=== PATIENT | male | born 1975 | race Caucasian/White ===

== ENCOUNTER 2020-04-09 03:31 | Inpatient (IN) | payer MEDICARE ==
[~2020-04-09] VITALS: Ht 180.3 cm; Wt 78.6 kg
[2020-04-09] VITALS (29 sets, daily range): BP systolic 91–153; BP diastolic 41–98; BMI 25.8
[2020-04-09] MEDS ORDERED: PAXIL10 MG (04:09)
[2020-04-09] MEDS ORDERED: GLUCOPHAGE500 MG PO (04:09)
[2020-04-09] MEDS ORDERED: LISINOPRIL5 MG (04:09)
[2020-04-09 04:14] LABS: BASOPHILS 0.1 % (0-2); EOSINOPHILS 0.1 % (0-7); HEMATOCRIT 36.1 % (42.0-54.0); HEMOGLOBIN 12.3 g/dL (13.5-17.5); IMMATURE GRANULOCYTES 0.2 % (0-5); LYMPHOCYTES 23.2 % (15-50); MCH 28.1 pg (26.0-34.0); MCHC 34.1 g/dL (31.0-37.0); MCV 82.4 fL (80.0-100.0); MEAN PLATELET VOLUME 9.8 fL (7.4-10.4); MONOCYTES 17.4 % (2-11); PLATELET COUNT 167 10x3/uL (130-400); RBC 4.38 10x6/uL (4.20-6.10); RDW 14.9 % (11.5-14.5); WBC 16.2 10x3/uL (4.8-10.8)
[2020-04-09 04:58] LABS: ALBUMIN 3.6 g/dL (3.4-5.0); ALKALINE PHOSPHATASE 76 U/L (30-120); ALT (SGPT) 33 U/L (10-68); BILIRUBIN - TOTAL 0.74 mg/dL (0.2-1.3); CARBON DIOXIDE 18.2 mmol/L (21.0-32.0); CHLORIDE - SERUM 92 mmol/L (98-107); CREATININE - SERUM 7.4 mg/dL (0.6-1.3); GLUCOSE 219 mg/dL (74-106); MAGNESIUM - SERUM 2.3 mg/dL (1.8-2.4); POTASSIUM - SERUM 3.9 mmol/L (3.5-5.1); PRO BNP 373 pg/mL (0-125); PROTEIN - SERUM 7.7 g/dL (6.4-8.2); SODIUM 133 mmol/L (136-145); eGFR NON AFRICAN AMERICAN 9 mL/min (90-120)
--- NOTE | 2020-04-09 05:00 | NUR ---
GROSSMAN EMPTIED OF 1200ML CLEAR MARCUS URINE
[2020-04-09 05:04] LABS: CALC OSMOLALITY 304 mosm/kg (275-300); CREATINE KINASE 2815 UL (21-232); TROPONIN-I < 0.017 ng/mL (0.000-0.060)
[2020-04-09 05:07] LABS: UREA NITROGEN 102 mg/dL (7-18)
[2020-04-09 05:08] LABS: CALCIUM 6.2 mg/dL (8.5-10.1); CKMB 12.9 U/L (0.0-3.6)
--- NOTE | 2020-04-09 06:00 | NUR ---
PT BEGAN FIGTING VENT SEE DRIP RECORD. RESP CALLED TO ER FOR TUBE ADJUSTMENT AND ABG. MD FELIX AT BEDSIDE.
--- NOTE | 2020-04-09 07:00 | NUR ---
PT CALM AT THIS TIME LYING IN STRECHER ON VENT, MONTIOR, SEE EMAR/DRIP FLOWSHEET. MD AT BEDSIDE.
--- NOTE | 2020-04-09 07:24 | NUR ---
BESIDE REPORT TO ALEXANDRA WAGGONER
--- NOTE | 2020-04-09 08:15 | NUR ---
REPOSITIONED UP IN BED. CONTINUES TO BECOME AGITATED AND FIGHT AGAINST THE VENT.
--- NOTE | 2020-04-09 10:10 | NUR ---
REPOSITIONED HIPAND BACK WITH BLANKET. FIGHTS AGAINST THE VENT WITH CONTACT AND MOVEMENT.
[2020-04-09 11:54] LABS: BACTERIA FEW /hpf (NEGATIVE); BILIRUBIN NEGATIVE (NEGATIVE); EPITHELIAL CELLS OCC /hpf (0-5); KETONE SMALL mg/dL (NEGATIVE); NITRITE NEGATIVE (NEGATIVE); UROBILINOGEN NORMAL (NORMAL); WHITE CELLS - URINE OCC /hpf (NEGATIVE)
[2020-04-09 12:15] LABS: UDS - AMPHET POSITIVE QUAL (NEGATIVE); UDS - BARB NEGATIVE QUAL (NEGATIVE); UDS - BENZO NEGATIVE QUAL (NEGATIVE); UDS - COCAINE NEGATIVE QUAL (NEGATIVE); UDS - OPIATE NEGATIVE QUAL (NEGATIVE); UDS - PCP NEGATIVE QUAL (NEGATIVE); UDS - THC NEGATIVE QUAL (NEGATIVE)
--- NOTE | 2020-04-09 12:30 | NUR ---
POSITIONING ATTEMPTED WITH ROLLED BLANKET FOR SUPPORT. FIGHTING AGAINST VENT NOTED FOR A FEW MINUTES.
--- NOTE | 2020-04-09 16:07 | NUR ---
ATTEMPT TO REPOSITION WITH BLANKET UNDER HHIP AND BACK. AGITATION NOTED WITH LEG AND UPPER BODY MOVEMENT. CALMING NOTED AFTER A FEW MINUTES WITHOUT STIMULATION.
--- NOTE | 2020-04-09 19:50 | NUR ---
REPORT OF ADMISSION AND ROOM NUMBER CALLED TO PT MOTHER. [facility] [phone]
[2020-04-10] VITALS (24 sets, daily range): BP systolic 115–141; BP diastolic 73–99; BMI 25.1
[2020-04-10 04:03] LABS: BASOPHILS 0.2 % (0-2); EOSINOPHILS 0.1 % (0-7); HEMATOCRIT 35.9 % (42.0-54.0); HEMOGLOBIN 11.9 g/dL (13.5-17.5); IMMATURE GRANULOCYTES 0.3 % (0-5); LYMPHOCYTES 18.1 % (15-50); MCH 27.3 pg (26.0-34.0); MCHC 33.1 g/dL (31.0-37.0); MCV 82.3 fL (80.0-100.0); MEAN PLATELET VOLUME 9.5 fL (7.4-10.4); MONOCYTES 19.8 % (2-11); NEUTROPHILS 61.5 % (40-80); PLATELET COUNT 175 10x3/uL (130-400); RBC 4.36 10x6/uL (4.20-6.10); RDW 15.3 % (11.5-14.5)
[2020-04-10 04:13] LABS: APTT 25.7 SECONDS (22.8-39.4); INR 1.06 (0.85-1.17); PROTIME 13.8 SECONDS (11.6-15.0)
[2020-04-10 04:15] LABS: WBC 10.4 10x3/uL (4.8-10.8)
[2020-04-10 04:23] LABS: ALBUMIN 2.9 g/dL (3.4-5.0); BILIRUBIN - TOTAL 0.73 mg/dL (0.2-1.3); MAGNESIUM - SERUM 2.3 mg/dL (1.8-2.4); POTASSIUM - SERUM 3.6 mmol/L (3.5-5.1); PROTEIN - SERUM 7.3 g/dL (6.4-8.2)
[2020-04-10 04:33] LABS: ANION GAP 12.7 mmol/L (8-16); CALCIUM 7.9 mg/dL (8.5-10.1); CARBON DIOXIDE 27.9 mmol/L (21.0-32.0); CREATININE - SERUM 1.2 mg/dL (0.6-1.3)
--- NOTE | 2020-04-10 07:10 | NUR ---
REPORT RECEIVED FROM OFF GOING NURSE AND PATIENT CARE ASSUMED. PATIENT LAYING IN BED ON BACK WITH VENT IN PLACE SEETTINGS AT FIO2 40% AC 14 TV 450 PEEP 5 ETT 7.5 23 AT LIP LINE. GROSSMAN DRAINING TO BAG CLEAR YELLOW URINE. IV LT AC 26.4 ML.HR AND RT HAND BICARB @100. EKATERINA SOFT WRIST RESTRAINTS IN PLACE. WILL CONTINUE WITH PLAN OF CARE. SR UP X 2 BED IN LOW POSITION.
--- NOTE | 2020-04-10 07:45 | NUR ---
PATIENT ATTEMPTING TO SIT UP IN BED AND PULLING ON RESTRAINTS. PER MAR ORDERS GAVE PATIENT VERSED 2 MG IV. AFTER 5 MINUTES, PATIENT NOT MUCH IMPROVED. GAVE DIPROVAN BOLUS OF 20. PATEINT IS LAYING QUEITLY AND CALM. BP 118/64 . WILL CONTINUE TO MONITOR. SR UP X 2 BED IN LOW POSITON.
--- NOTE | 2020-04-10 08:30 | NUR ---
DR ROSS ON UNIT. NEW ORDERS RECEIVED.
--- NOTE | 2020-04-10 08:40 | NUR ---
DR KAY ON UNIT. NEW ORDERS RECEVIED.
--- NOTE | 2020-04-10 09:00 | NUR ---
PATIENT REPOSITIONED FOR COMFORT AND ORAL CARE PROVIDED.
--- NOTE | 2020-04-10 09:30 | NUR ---
PATIENT MOTHER CALLED. SHE HAD SECURITY CODE. GAVE UPDATE AND ANSWERED QUESTIONS TO SATISFACTION.
--- NOTE | 2020-04-10 10:15 | NUR ---
DR HO CONSULT DR HERNANDES FOR UGI BLEED. CONSULT DR GTZ FOR CVL PLACEMENT.
[2020-04-10 10:18] LABS: CKMB 2.4 U/L (0.0-3.6); CREATINE KINASE 717 UL (21-232)
--- NOTE | 2020-04-10 10:30 | NUR ---
DR TURNER ON UNIT NEW ORDERS RECEIVED.
--- NOTE | 2020-04-10 11:00 | NUR ---
PATIENT REPOSITIONED FOR COMFORT AND ORAL CARE PERFORMED.
[2020-04-10 11:43] LABS: CREATINE KINASE 480 UL (21-232); CREATININE - SERUM 0.8 mg/dL (0.6-1.3)
[2020-04-10 11:44] LABS: CKMB 1.5 U/L (0.0-3.6)
[2020-04-10 11:57] LABS: BASOPHILS 0.2 % (0-2); EOSINOPHILS 0.2 % (0-7); HEMATOCRIT 35.6 % (42.0-54.0); HEMOGLOBIN 11.9 g/dL (13.5-17.5); IMMATURE GRANULOCYTES 0.2 % (0-5); LYMPHOCYTES 15.9 % (15-50); MCH 27.8 pg (26.0-34.0); MCHC 33.4 g/dL (31.0-37.0); MCV 83.2 fL (80.0-100.0); MEAN PLATELET VOLUME 9.6 fL (7.4-10.4); NEUTROPHILS 67.5 % (40-80); PLATELET COUNT 179 10x3/uL (130-400); RBC 4.28 10x6/uL (4.20-6.10); RDW 15.4 % (11.5-14.5); WBC 10.4 10x3/uL (4.8-10.8)
--- NOTE | 2020-04-10 13:00 | NUR ---
SPOKE WITH PATIENTS MOTHER REBECCA MONTALVO. RECEIVED VERBAL PERMISSION FOR DR HERNANDES TO PERFORM EGD , BLOOD IF NEEDED AND ANESTHESISA. RECEIVED VERBAL PERMISSION FOR DR GTZ TO DO CVL PLACEMENT.
--- NOTE | 2020-04-10 13:00 | NUR ---
PATIENT REPOSITONED FOR COMFORT AND ORAL CARE PROVIDED.
--- NOTE | 2020-04-10 14:00 | NUR ---
DR HERNANDES IN ROOM. EGD COMPLETED. PATIENT TOLERATED WELL. NEW ORDERS RECEIVED. PATIENT IS STABLE AND VSS. WILL CONTINUE TO MONITOR. SR UP X 2 BED IN LOW POSITON. EKATERINA WLRIST RESTRAINTS IN PLACE.
--- NOTE | 2020-04-10 15:45 | NUR ---
PATIENT REPOSITONED FOR COMFORT AND ORAL CARE PROVIDED.
--- NOTE | 2020-04-10 17:32 | NUR ---
LETTY CHAIREZ. GAMING ASSOCIATE ACCESS NURSE IN ROOM. RT UPPER ARM PICC LINE PLACED WITHOUT DIFFICULTY. ALL IV TUBING REPLACED AND INFUSED THROUGH PICC LINE. WILL CONTINUE TO MONITOR. SR UP X 2 BED IN LOW POSITION .
--- NOTE | 2020-04-10 18:00 | NUR ---
OGT PLACED WITHOUT DIFFICULTY. PLACEMENT VERIFIED THROUGH AUSCULTATION AND XRAY. PATEINT CONTINUES WITH ST IN THE 120'S. SPOKE WITH MARIAM THORNTON. STATED THAT MOST LIKELY DUE TO METH USE. NO NEW ORDERS RECEVED. INSTRUCTED TO CALL HIM BACK IF ST INCREASES OVER 140 OR ARRYTHMIA. WILL CONTINUE TO MONITOR.
--- NOTE | 2020-04-10 18:15 | NUR ---
PATIENT REPOSITONED FOR COMFORT AND ORAL CARE PROVIDED.
--- NOTE | 2020-04-10 19:15 | NUR ---
REPORT RECIEVED, SHIFT ASSESSMENT COMPLETE, PT IS SEDATED ON VENT, ON 40% FIO2 WITH 95% O2 SAT, ALL PPP, VSS, WILL CON'T TO MONITOR
[2020-04-11] VITALS (25 sets, daily range): BP systolic 127–168; BP diastolic 80–99
--- NOTE | 2020-04-11 03:06 | NUR ---
COMPLETE BATH AND LINEN CHANGE, PT TOLERATED WELL
[2020-04-11 04:33] LABS: BASOPHILS 0.3 % (0-2); EOSINOPHILS 0.3 % (0-7); HEMATOCRIT 36.2 % (42.0-54.0); HEMOGLOBIN 11.9 g/dL (13.5-17.5); IMMATURE GRANULOCYTES 0.2 % (0-5); LYMPHOCYTES 16.2 % (15-50); MCH 27.9 pg (26.0-34.0); MCHC 32.9 g/dL (31.0-37.0); MCV 84.8 fL (80.0-100.0); MEAN PLATELET VOLUME 9.9 fL (7.4-10.4); MONOCYTES 19.9 % (2-11); NEUTROPHILS 63.1 % (40-80); PLATELET COUNT 194 10x3/uL (130-400); RBC 4.27 10x6/uL (4.20-6.10); RDW 15.5 % (11.5-14.5); WBC 12.9 10x3/uL (4.8-10.8)
[2020-04-11 04:53] LABS: ALBUMIN 2.8 g/dL (3.4-5.0); ALKALINE PHOSPHATASE 61 U/L (30-120); ALT (SGPT) 25 U/L (10-68); BILIRUBIN - TOTAL 0.52 mg/dL (0.2-1.3); CALCIUM 8.2 mg/dL (8.5-10.1); CARBON DIOXIDE 32.5 mmol/L (21.0-32.0); CHLORIDE - SERUM 108 mmol/L (98-107); CREATININE - SERUM 0.8 mg/dL (0.6-1.3); GLUCOSE 176 mg/dL (74-106); MAGNESIUM - SERUM 2.2 mg/dL (1.8-2.4); POTASSIUM - SERUM 3.3 mmol/L (3.5-5.1); PROTEIN - SERUM 7.3 g/dL (6.4-8.2); SODIUM 150 mmol/L (136-145); eGFR NON AFRICAN AMERICAN > 90 mL/min (90-120)
[2020-04-11 05:03] LABS: CALC OSMOLALITY 302 mosm/kg (275-300); UREA NITROGEN 16 mg/dL (7-18)
--- NOTE | 2020-04-11 07:00 | NUR ---
RECEIVED REPORT FROM ONGOING NURSE. PT IS BEDFAST. ASSESSMENT COMPLETE.
--- NOTE | 2020-04-11 08:25 | NUR ---
DR KAY HERE AT BEDSIDE. OG TUBE IN PLACE. NO NEW ORDER AT THIS TIME
--- NOTE | 2020-04-11 09:55 | NUR ---
DR TURNER AT BEDSIDE. ASSESS PT. GAVE UPDATE. NO NEW ORDER RECEIVED AT THIS TIME.
--- NOTE | 2020-04-11 10:33 | NUR ---
Nutrition consult: Received verbal consult to start TF. Chart reviewed Propofol @ 45 ml/hr at this time Pt intubated Labs reviewed Glucerna 1.0 denisa started @ 20 ml/hr with increase to goal rate of 50 ml/hr via OGT with 100 ml H2O flush q [address] Flores. Thank you for the consult. RDN following.
--- NOTE | 2020-04-11 10:43 | NUR ---
PT REPOSITIONED TO THE LEFT SIDE AND ORAL CARE PROVIDED
--- NOTE | 2020-04-11 13:00 | NUR ---
PT IN BED. TEMP 103. TYLENOL AND VERSED GIVEN. ORDER OF GLUCERNA STARTED.
--- NOTE | 2020-04-11 15:30 | NUR ---
DOCTOR PODIATRIC MEDICINE AT BEDSIDE. NO NEW ORDER AT THIS TIME.
--- NOTE | 2020-04-11 19:15 | NUR ---
REPORT RECIEVED, SHIFT ASSESSMENT COMPLETE, PT IS SEDATED ON VENT, 94% O2 SAT. ALL PPP, VSS, WILL CON'T TO MONITOR
--- NOTE | 2020-04-11 21:00 | NUR ---
COMPLETE BATH AND LINEN CHANGE
[2020-04-12] VITALS (24 sets, daily range): BP systolic 106–165; BP diastolic 76–100
[2020-04-12 05:13] LABS: BASOPHILS 0.5 % (0-2); EOSINOPHILS 3.3 % (0-7); HEMATOCRIT 35.9 % (42.0-54.0); HEMOGLOBIN 11.3 g/dL (13.5-17.5); IMMATURE GRANULOCYTES 0.5 % (0-5); LYMPHOCYTES 24.2 % (15-50); MCH 27.6 pg (26.0-34.0); MCHC 31.5 g/dL (31.0-37.0); MEAN PLATELET VOLUME 9.9 fL (7.4-10.4); MONOCYTES 19.1 % (2-11); NEUTROPHILS 52.4 % (40-80); PLATELET COUNT 183 10x3/uL (130-400); RDW 15.4 % (11.5-14.5); WBC 15.5 10x3/uL (4.8-10.8)
[2020-04-12 05:14] LABS: MCV 87.6 fL (80.0-100.0)
[2020-04-12 05:33] LABS: ALBUMIN 2.7 g/dL (3.4-5.0); ALKALINE PHOSPHATASE 63 U/L (30-120); ALT (SGPT) 21 U/L (10-68); CALCIUM 8.4 mg/dL (8.5-10.1); CHLORIDE - SERUM 103 mmol/L (98-107); CREATININE - SERUM 0.7 mg/dL (0.6-1.3); GLUCOSE 151 mg/dL (74-106); POTASSIUM - SERUM 3.6 mmol/L (3.5-5.1); PROTEIN - SERUM 7.5 g/dL (6.4-8.2); SODIUM 142 mmol/L (136-145); eGFR NON AFRICAN AMERICAN > 90 mL/min (90-120)
[2020-04-12 05:43] LABS: CALC OSMOLALITY 284 mosm/kg (275-300); UREA NITROGEN 9 mg/dL (7-18)
--- NOTE | 2020-04-12 07:00 | NUR ---
RECEIVED REPORT FROM ONGOING NURSE. PT IN BED. TEMP CAME DOWN TO 98.8
--- NOTE | 2020-04-12 09:00 | NUR ---
DR TURNER HERE AT BEDSIDE. NEW ORDER OF ECHO. WILL CONT TO MONITOR
--- NOTE | 2020-04-12 10:48 | NUR ---
RT IN ROOM. FIO2 INCREASED TO 75%
--- NOTE | 2020-04-12 13:00 | NUR ---
PT IN ROOM. ECHO IS DONE. PT REPOSITIONNED FOR COMFORT
--- NOTE | 2020-04-12 15:00 | NUR ---
PT IN ROOM RESTING COMFORTABLY. FAMILY MEMBER CALLED. UPDATE GIVEN
--- NOTE | 2020-04-12 16:00 | NUR ---
DR HERNANDES'S NET SORTER IN ROOM. NO NEW ORDER AT THIS TIME. WILL CONT TO MONITOR
--- NOTE | 2020-04-12 18:15 | NUR ---
ORAL ENDOTRACH CARE ADM. NO NEW CHANGES WILL CONTINUE TO MONITOR
--- NOTE | 2020-04-12 19:00 | NUR ---
REPORT RECIEVED, SHIFT ASSESSMENT COMPLETE, PT IS SEDATED ON VENT, ALL PPP, VSS, WILL CON'T TO MONITOR
[2020-04-13] VITALS (25 sets, daily range): BP systolic 116–167; BP diastolic 78–107
--- NOTE | 2020-04-13 01:37 | NUR ---
INCREASE IN PT B/P. MARIAM BENNETT NOTIFIED, NEW ORDERS RECIEVED
--- NOTE | 2020-04-13 07:00 | NUR ---
RECEIVED REPORT FROM ONGOING NURSE. PT IN BED. VSS
[2020-04-13 07:09] LABS: HEMATOCRIT 33.6 % (42.0-54.0); HEMOGLOBIN 10.5 g/dL (13.5-17.5); MCH 27.5 pg (26.0-34.0); MCHC 31.3 g/dL (31.0-37.0); MEAN PLATELET VOLUME 10.6 fL (7.4-10.4); PLATELET COUNT 187 10x3/uL (130-400); RBC 3.82 10x6/uL (4.20-6.10)
[2020-04-13 07:11] LABS: WBC 8.7 10x3/uL (4.8-10.8)
[2020-04-13 07:38] LABS: ALBUMIN 2.3 g/dL (3.4-5.0); ALKALINE PHOSPHATASE 55 U/L (30-120); ALT (SGPT) 21 U/L (10-68); CALC OSMOLALITY 284 mosm/kg (275-300); CALCIUM 8.4 mg/dL (8.5-10.1); CARBON DIOXIDE 29.7 mmol/L (21.0-32.0); CHLORIDE - SERUM 102 mmol/L (98-107); CREATININE - SERUM 0.6 mg/dL (0.6-1.3); GLUCOSE 196 mg/dL (74-106); MAGNESIUM - SERUM 1.5 mg/dL (1.8-2.4); POTASSIUM - SERUM 3.5 mmol/L (3.5-5.1); SODIUM 141 mmol/L (136-145); UREA NITROGEN 9 mg/dL (7-18); eGFR NON AFRICAN AMERICAN > 90 mL/min (90-120)
[2020-04-13 07:39] LABS: EOSINOPHILS 1 % (0-7); LYMPHOCYTES 39 % (15-50); MONOCYTES 3 % (2-11); NEUTROPHILS 52 % (40-80); PLATELET ESTIMATE NORMAL
--- NOTE | 2020-04-13 09:00 | NUR ---
REPOSITIONNED PATIENT. RT TRIED CPAP. PT DID NOT TOLERATE IT. HR RR BP INCREASED. PT IS NOW BACK ON VENT.
--- NOTE | 2020-04-13 09:58 | NUR ---
NUTRITION F/U PT REMAINS ON VENT. NURSING REPORTS PT DID NOT TOLERATE TUBE FEEDS. CURRENTLY OFF WITH PLANS TO RESUME AT LOW RATE THIS AFTERNOON. RD FOLLOWING
--- NOTE | 2020-04-13 11:10 | NUR ---
REPOSITIONNED PT FOR COMFORT. SUCTIONNED. VSS.
--- NOTE | 2020-04-13 11:42 | NUR ---
DR TURNER HERE AT BEDSIDE. NO NEW ORDER AT THIS TIME.
--- NOTE | 2020-04-13 13:04 | NUR ---
REPOSITIONNED FOR COMFORT. VSS. WILL CONT TO MONITOR
--- NOTE | 2020-04-13 15:00 | NUR ---
PT IS GIVEN A BATH AND REPOSITIONNED FOR COMFORT. WILL CONTINUE TO MONITOR.
--- NOTE | 2020-04-13 19:00 | NUR ---
REPORT RECEIVED. ASSESSMENT COMPLETE PER FLOW SHEET. VSS. PT RESTING COMFORTABLY WILL CONTINUE TO MONITOR
[2020-04-14] VITALS (24 sets, daily range): BP systolic 124–163; BP diastolic 84–107
[2020-04-14 07:19] LABS: BASOPHILS 0.6 % (0-2); EOSINOPHILS 8.9 % (0-7); HEMATOCRIT 32.7 % (42.0-54.0); HEMOGLOBIN 10.4 g/dL (13.5-17.5); IMMATURE GRANULOCYTES 3.1 % (0-5); LYMPHOCYTES 31.6 % (15-50); MCH 27.4 pg (26.0-34.0); MCHC 31.8 g/dL (31.0-37.0); MCV 86.3 fL (80.0-100.0); MEAN PLATELET VOLUME 9.7 fL (7.4-10.4); MONOCYTES 21.4 % (2-11); NEUTROPHILS 34.4 % (40-80); PLATELET COUNT 197 10x3/uL (130-400); RBC 3.79 10x6/uL (4.20-6.10); RDW 14.4 % (11.5-14.5); WBC 7.8 10x3/uL (4.8-10.8)
[2020-04-14 07:32] LABS: ALBUMIN 2.1 g/dL (3.4-5.0); ALKALINE PHOSPHATASE 52 U/L (30-120); ALT (SGPT) 21 U/L (10-68); BILIRUBIN - TOTAL 0.28 mg/dL (0.2-1.3); CALC OSMOLALITY 284 mosm/kg (275-300); CALCIUM 8.5 mg/dL (8.5-10.1); CARBON DIOXIDE 29.6 mmol/L (21.0-32.0); CHLORIDE - SERUM 104 mmol/L (98-107); CREATININE - SERUM 0.5 mg/dL (0.6-1.3); GLUCOSE 210 mg/dL (74-106); MAGNESIUM - SERUM 1.5 mg/dL (1.8-2.4); POTASSIUM - SERUM 3.5 mmol/L (3.5-5.1); PROTEIN - SERUM 6.9 g/dL (6.4-8.2); SODIUM 141 mmol/L (136-145); UREA NITROGEN 8 mg/dL (7-18); eGFR NON AFRICAN AMERICAN > 90 mL/min (90-120)
--- NOTE | 2020-04-14 14:35 | NUR ---
SUCTION LARGE AMOUNT CLEAR SECRETIONS ORALLY.
--- NOTE | 2020-04-14 18:39 | NUR ---
LARGE BROWN STOOL. RECTAL TUBE INSERTED. TO MAINTAIN SKIN INTERGRITY.
--- NOTE | 2020-04-14 20:39 | NUR ---
ATTEMPTED TO CHECK RESIDUAL AND GIVE MEDICATIONS PER OGT, BLOCKED OFF, ATTEMPTED FLUSHING AND PULLING BACK WITH NO SUCCESS. DR VOICE ESQUEDA.
--- NOTE | 2020-04-14 21:50 | NUR ---
NO CALLBACK FROM DR HERNANDES, ATTEMPTED TO USE COCA-COLA TO UNCLOGG OGT, THIS WAS ALSO UNSUCCESSFULL. CHARGE NURSE TO ATTEMPT UNCLOGGING.
--- NOTE | 2020-04-14 22:12 | NUR ---
GAVE REPORT TO DEEPAK WAGGONER AT BEDSIDE.
[2020-04-15] VITALS (22 sets, daily range): BP systolic 121–169; BP diastolic 85–110
--- NOTE | 2020-04-15 09:21 | NUR ---
DIPRIVAN TURNED DOWN TO 25 MCG/KG/MIN FOR CPAP TRIALS. PATIENT PLACED ON CPAP TRIAL RESP RATE INCREASED IMMEDIATELY TO UPPER 40'S AND 50'S. DR. KAY HERE NEW ORDERS RECEIVED. TO DC DIPRIVAN AND ADD FENTANYL. PATIENT CONTINUES TO HAVE LARGE AMOUNT LLOYD CLEAR ORAL SECRETIONS AND ETT SECRETIONS. OPENED EYES, GRIMACES AND MOVES EXTREMITIES WITH ORAL CARE
--- NOTE | 2020-04-15 13:00 | NUR ---
FENTANYL CONTINOUS INFUSION STARTED AT 50 MCG/HR FOR ELEVATED RESP RATE IN 30'S AND CHEWING ON ETT. MORE AWAKE, COUGHING, EYES OPEN TO VOICE. STILL RANDOMLY SQUEEZES HANDS. MOVINES ALL EXTREMOITIES TO PAINFUL STIMULI. VERSED CONTINUES AT 4 MG HOUR. SUCTIONING LARGE AMOUNT OF CLEAR AND WHITE SECRETION FROM ETT AND ORALLY. RECTAL TUBE WITHLIQUID BROWN. NO SKIN BREAKDOWN NOTED. PICC LINE RIGHT UPPER ARM INFUSING WITH D51/2 NS AT 75 ML HOUR. GROSSMAN CATH PATENT DRAINING CLEAR MARCUS URINE. MONITOR SR TO ST. ORAL CARE DONE. SCD'S ON LOWER LEGS. HEELS BRIDGE ON PILLOW.
--- NOTE | 2020-04-15 15:30 | NUR ---
COMPLETE HIBCLENS BATH GIVEN WITH LINEN CHANGE. NO SKIN BREAKDOWN NOTED. RECTAL WITH LIQUID BROWN SOME LEAKING AROUND RECTAL TUBE. GROSSMAN CATH PATENT. FENTANYL GRADUAL INCREASED TO 100 MCG/HOUR TO KEEP RESP RATE BELOW 30. PATIENT OPENING EYES RANDOMLY NOT MAKING EYE CONTACT. MOVING ALL EXTREMITITES RANDOMLY. MONITOR SR TO ST. OG INFUSING WITH GLUCERNA AT 25 ML HOUR. NEW TUBING TO TUBE FEEDING, D51/2NS AND FENTANLY APPLIED. PICC DRESSING RIGHT UPPER ARM DRY AND INTACT. NO REDNESS OR SWELLING
[2020-04-16] VITALS (24 sets, daily range): BP systolic 108–170; BP diastolic 69–110
[2020-04-16 05:23] LABS: ALBUMIN 2.3 g/dL (3.4-5.0); ALKALINE PHOSPHATASE 58 U/L (30-120); BILIRUBIN - TOTAL 0.27 mg/dL (0.2-1.3); CALC OSMOLALITY 283 mosm/kg (275-300); CALCIUM 8.7 mg/dL (8.5-10.1); CARBON DIOXIDE 28.7 mmol/L (21.0-32.0); CHLORIDE - SERUM 103 mmol/L (98-107); GLUCOSE 176 mg/dL (74-106); POTASSIUM - SERUM 3.4 mmol/L (3.5-5.1); PROTEIN - SERUM 7.4 g/dL (6.4-8.2); SODIUM 141 mmol/L (136-145); UREA NITROGEN 10 mg/dL (7-18)
[2020-04-16 05:24] LABS: ALT (SGPT) 37 U/L (10-68); CREATININE - SERUM 0.7 mg/dL (0.6-1.3); eGFR NON AFRICAN AMERICAN > 90 mL/min (90-120)
[2020-04-16 05:26] LABS: HEMATOCRIT 36.7 % (42.0-54.0); HEMOGLOBIN 11.7 g/dL (13.5-17.5); MCH 27.4 pg (26.0-34.0); MCHC 31.9 g/dL (31.0-37.0); MCV 85.9 fL (80.0-100.0); MEAN PLATELET VOLUME 9.5 fL (7.4-10.4); RBC 4.27 10x6/uL (4.20-6.10); RDW 14.4 % (11.5-14.5)
[2020-04-16 05:27] LABS: PLATELET COUNT 251 10x3/uL (130-400); WBC 18.4 10x3/uL (4.8-10.8)
--- NOTE | 2020-04-16 07:15 | NUR ---
REPORT RECEIVED. ASSESSMENT COMPLETE PER FLOW SHEET. VSS. PT RESTING COMFORTABLY WILL CONTINUE TO MONITOR
--- NOTE | 2020-04-16 11:07 | NUR ---
Nutrition follow-up: Intubated; awake but not following commands per nurse OGT with Glucerna 1.0 denisa @ 25 ml/hr; goal rate 50 ml/hr OGT clogged over the weekend Rectal tube in place Labs reviewed RDN following.
[2020-04-16 12:56] LABS: ANISOCYTOSIS OCC; EOSINOPHILS 7 % (0-7); LYMPHOCYTES 12 % (15-50); MONOCYTES 27 % (2-11); NEUTROPHILS 49 % (40-80); PLATELET ESTIMATE NORMAL; POLYCHROMASIA OCC
--- NOTE | 2020-04-16 14:27 | NUR ---
FAILED CPAP TRIAL RR INCREASED TO 60
--- NOTE | 2020-04-16 14:28 | NUR ---
INCREASED VT TO 500
[2020-04-17] VITALS (23 sets, daily range): BP systolic 108–152; BP diastolic 70–407
[2020-04-17 05:11] LABS: BASOPHILS 0.7 % (0-2); EOSINOPHILS 3.1 % (0-7); HEMATOCRIT 32.5 % (42.0-54.0); HEMOGLOBIN 10.4 g/dL (13.5-17.5); IMMATURE GRANULOCYTES 9.9 % (0-5); LYMPHOCYTES 20.8 % (15-50); MCV 87.4 fL (80.0-100.0); MEAN PLATELET VOLUME 9.4 fL (7.4-10.4); MONOCYTES 13.5 % (2-11); PLATELET COUNT 221 10x3/uL (130-400); RBC 3.72 10x6/uL (4.20-6.10); RDW 14.3 % (11.5-14.5); WBC 16.1 10x3/uL (4.8-10.8)
--- NOTE | 2020-04-17 07:15 | NUR ---
REPORT RECEIVED. ASSESSMENT COMPLETE PER FLOW SHEET. VSS. PT RESTING COMFORTABLY WILL CONTINUE TO MONTIOR
[2020-04-17 09:32] LABS: ALBUMIN 2.8 g/dL (3.4-5.0); ALKALINE PHOSPHATASE 63 U/L (30-120); ALT (SGPT) 47 U/L (10-68); BILIRUBIN - TOTAL 0.23 mg/dL (0.2-1.3); CALC OSMOLALITY 280 mosm/kg (275-300); CALCIUM 8.6 mg/dL (8.5-10.1); CARBON DIOXIDE 33.1 mmol/L (21.0-32.0); CHLORIDE - SERUM 102 mmol/L (98-107); CREATININE - SERUM 0.6 mg/dL (0.6-1.3); GLUCOSE 144 mg/dL (74-106); MAGNESIUM - SERUM 1.5 mg/dL (1.8-2.4); PHOSPHOROUS 4.2 mg/dL (2.5-4.9); POTASSIUM - SERUM 3.7 mmol/L (3.5-5.1); PRO BNP 121 pg/mL (0-125); PROTEIN - SERUM 7.5 g/dL (6.4-8.2); SODIUM 140 mmol/L (136-145); UREA NITROGEN 9 mg/dL (7-18); eGFR NON AFRICAN AMERICAN > 90 mL/min (90-120)
[2020-04-18] VITALS (24 sets, daily range): BP systolic 90–134; BP diastolic 65–96
[2020-04-18 05:14] LABS: HEMATOCRIT 28.1 % (42.0-54.0); HEMOGLOBIN 8.7 g/dL (13.5-17.5); MCH 27.1 pg (26.0-34.0); MCV 87.5 fL (80.0-100.0); MEAN PLATELET VOLUME 9.2 fL (7.4-10.4); PLATELET COUNT 189 10x3/uL (130-400); RBC 3.21 10x6/uL (4.20-6.10); RDW 14.5 % (11.5-14.5); WBC 12.2 10x3/uL (4.8-10.8)
--- NOTE | 2020-04-18 07:15 | NUR ---
REPORT RECEVIED. ASSESSMENT COMPLETE PER FLOW SHEET. VSS. PT RESTING COMFORTABLY WILL CONTINUE TO MONITOR
[2020-04-18 08:01] LABS: ALBUMIN 2.2 g/dL (3.4-5.0); ALKALINE PHOSPHATASE 54 U/L (30-120); BILIRUBIN - TOTAL 0.23 mg/dL (0.2-1.3); CALC OSMOLALITY 278 mosm/kg (275-300); CALCIUM 8.6 mg/dL (8.5-10.1); CARBON DIOXIDE 30.6 mmol/L (21.0-32.0); CHLORIDE - SERUM 103 mmol/L (98-107); CREATININE - SERUM 0.7 mg/dL (0.6-1.3); GLUCOSE 136 mg/dL (74-106); MAGNESIUM - SERUM 1.4 mg/dL (1.8-2.4); SODIUM 139 mmol/L (136-145); UREA NITROGEN 9 mg/dL (7-18); eGFR NON AFRICAN AMERICAN > 90 mL/min (90-120)
[2020-04-18 08:03] LABS: ALT (SGPT) 35 U/L (10-68); POTASSIUM - SERUM 3.1 mmol/L (3.5-5.1)
--- NOTE | 2020-04-18 13:12 | NUR ---
Nutrition follow-up: Pt remains intubated Weaning trials today with TF off Labs reviewed Wt: 182# RDN following.
[2020-04-18 13:54] LABS: EOSINOPHILS 1 % (0-7); LYMPHOCYTES 24 % (15-50); MONOCYTES 11 % (2-11); NEUTROPHILS 54 % (40-80)
[2020-04-18 13:55] LABS: PLATELET ESTIMATE NORMAL
[2020-04-19] VITALS (25 sets, daily range): BP systolic 91–116; BP diastolic 60–92
[2020-04-19 05:54] LABS: BASOPHILS 0.4 % (0-2); EOSINOPHILS 2.3 % (0-7); HEMATOCRIT 29.9 % (42.0-54.0); HEMOGLOBIN 9.5 g/dL (13.5-17.5); LYMPHOCYTES 27.3 % (15-50); MCH 27.2 pg (26.0-34.0); MCHC 31.8 g/dL (31.0-37.0); MCV 85.7 fL (80.0-100.0); MEAN PLATELET VOLUME 9.3 fL (7.4-10.4); MONOCYTES 12.6 % (2-11); NEUTROPHILS 53.4 % (40-80); PLATELET COUNT 213 10x3/uL (130-400); RBC 3.49 10x6/uL (4.20-6.10); RDW 14.5 % (11.5-14.5); WBC 12.5 10x3/uL (4.8-10.8)
--- NOTE | 2020-04-19 07:00 | NUR ---
RECEIVED BEDSIDE REPORT AND ASSUMED CARE OF PATIENT. PATEINT SEDATED ON VENT, WILL OPEN EYES AND FOLLOW SIMPLE COMMANDS. ETT - 7.5 23 CM AT TEETH, VENT SETTINGS ARE AC 14, TV 500, PEEP 5 AND FIO2 50%. PATIENT TURNED AND REPOSITONED IN BED. RECTAL TUBE NOTED IN PLACE, NO LEAK DETECTED WITH LOOSE BROWN LIQUID STOOL IN BAG. GROSSMAN CATH IN PLACE WITH MARCUS CLEAR UOP NOTED. PICC LINE TO RIGHT UPPER ARM NOTED WITH D51/2 NS INFUSING AT 75 ML/HR, VERSED AT 4 MG/HR (4ML/HR) AND FENTANYL AT 350 MCG/HR (7 ML/HR). BBS - CLEAR BUT DIMINISHED, HR 67- NSR ON CM, SPO2 100%. HEAD TO TOE ASSESSMENT COMPLETED. PATIENT TURNED AND REPOSITIONED IN BED.
[2020-04-19 08:58] LABS: ALBUMIN 2.4 g/dL (3.4-5.0); ALKALINE PHOSPHATASE 54 U/L (30-120); ALT (SGPT) 32 U/L (10-68); CALC OSMOLALITY 273 mosm/kg (275-300); CALCIUM 8.5 mg/dL (8.5-10.1); CARBON DIOXIDE 29.8 mmol/L (21.0-32.0); CHLORIDE - SERUM 101 mmol/L (98-107); CREATININE - SERUM 0.7 mg/dL (0.6-1.3); GLUCOSE 125 mg/dL (74-106); MAGNESIUM - SERUM 1.4 mg/dL (1.8-2.4); POTASSIUM - SERUM 3.3 mmol/L (3.5-5.1); PROTEIN - SERUM 6.8 g/dL (6.4-8.2); SODIUM 137 mmol/L (136-145); UREA NITROGEN 10 mg/dL (7-18); eGFR NON AFRICAN AMERICAN > 90 mL/min (90-120)
--- NOTE | 2020-04-19 08:58 | NUR ---
RT AT ROOM DRAWING ABGS.
--- NOTE | 2020-04-19 09:00 | NUR ---
PATIENT RESTING BASIA OROZCO. TURNED AND REPOSITIONED IN BED.
--- NOTE | 2020-04-19 09:10 | NUR ---
RT INCREASED FIO2 TO 60% ABG'S PO2 62 AND SPO2 91%.
--- NOTE | 2020-04-19 11:08 | NUR ---
REASSESSMENT COMPLETED. VSS. TURNED AND REPOSITIONED IN BED.
--- NOTE | 2020-04-19 11:43 | NUR ---
SPOKE TO DR. AGUSTIN REGARDING PATIENTS K - 3.3 AND MAG 1.4, ORDERS ELECTROLYTE PROTOCOL TO BE PLACED FOR PATIENT. WILL NOT BE EXTUBATING TODAY, PLANS TO DO A BRONCOSCOPY. WILL RESTART TUBE FEEDING ONCE BRONCHOSCOPY IS COMPLETED.
--- NOTE | 2020-04-19 13:10 | NUR ---
PATIENT TURNED AND REPOSITIONED IN BED. VSS.
--- NOTE | 2020-04-19 14:56 | NUR ---
REASSESSMENT COMPLETED. VSS. PATIENT GIVE A COMPLETE CHG BATH AND LINEN CHANGED. TURNED AND REPOSITIONED IN BED.
--- NOTE | 2020-04-19 15:57 | NUR ---
LAB AT ROOM AND SHELL Peña
--- NOTE | 2020-04-19 17:01 | NUR ---
PATIENT TURNED AND REPOSITIONED IN BED. VSS.
[2020-04-20] VITALS (24 sets, daily range): BP systolic 90–130; BP diastolic 50–92
[2020-04-20 05:33] LABS: BASOPHILS 0.3 % (0-2); EOSINOPHILS 2.1 % (0-7); HEMATOCRIT 28.4 % (42.0-54.0); IMMATURE GRANULOCYTES 1.1 % (0-5); LYMPHOCYTES 23.6 % (15-50); MCH 27.4 pg (26.0-34.0); MCHC 31.7 g/dL (31.0-37.0); MCV 86.6 fL (80.0-100.0); MEAN PLATELET VOLUME 9.3 fL (7.4-10.4); NEUTROPHILS 61.9 % (40-80); PLATELET COUNT 207 10x3/uL (130-400); RBC 3.28 10x6/uL (4.20-6.10); RDW 14.5 % (11.5-14.5); WBC 13.5 10x3/uL (4.8-10.8)
[2020-04-20 05:50] LABS: ALBUMIN 2.1 g/dL (3.4-5.0); ALKALINE PHOSPHATASE 49 U/L (30-120); ALT (SGPT) 31 U/L (10-68); CALC OSMOLALITY 279 mosm/kg (275-300); CALCIUM 7.9 mg/dL (8.5-10.1); CARBON DIOXIDE 28.3 mmol/L (21.0-32.0); CHLORIDE - SERUM 99 mmol/L (98-107); CREATININE - SERUM 0.7 mg/dL (0.6-1.3); POTASSIUM - SERUM 3.2 mmol/L (3.5-5.1); PRO BNP 38 pg/mL (0-125); PROTEIN - SERUM 6.4 g/dL (6.4-8.2); SODIUM 133 mmol/L (136-145); UREA NITROGEN 8 mg/dL (7-18); eGFR NON AFRICAN AMERICAN > 90 mL/min (90-120)
[2020-04-20 05:53] LABS: GLUCOSE 381 mg/dL (74-106)
--- NOTE | 2020-04-20 10:07 | NUR ---
Nutrition follow-up: Pt remains intubated, sedated Bronch 04/19 Glucerna 1.0 denisa @ 50 ml/hr 20 ml H2O flush q hour Labs reviewed Wt: 184# RDN following.
--- NOTE | 2020-04-20 12:47 | NUR ---
PT COMMING OOB. ASSISTED BACK TO BED. BED ALARM ON. RESTRAINTS REAPPLIED.
[2020-04-21] VITALS (23 sets, daily range): BP systolic 89–146; BP diastolic 54–103
[2020-04-21 05:53] LABS: BASOPHILS 0.5 % (0-2); EOSINOPHILS 2.5 % (0-7); HEMATOCRIT 30.3 % (42.0-54.0); HEMOGLOBIN 9.4 g/dL (13.5-17.5); MCH 27.1 pg (26.0-34.0); MCV 87.3 fL (80.0-100.0); MEAN PLATELET VOLUME 9.5 fL (7.4-10.4); MONOCYTES 10.8 % (2-11); NEUTROPHILS 66.2 % (40-80); PLATELET COUNT 218 10x3/uL (130-400); RBC 3.47 10x6/uL (4.20-6.10); RDW 14.7 % (11.5-14.5)
[2020-04-21 06:26] LABS: ALBUMIN 2.5 g/dL (3.4-5.0); ALKALINE PHOSPHATASE 55 U/L (30-120); ALT (SGPT) 30 U/L (10-68); BILIRUBIN - TOTAL 0.25 mg/dL (0.2-1.3); CALC OSMOLALITY 273 mosm/kg (275-300); CALCIUM 8.3 mg/dL (8.5-10.1); CARBON DIOXIDE 27.2 mmol/L (21.0-32.0); CHLORIDE - SERUM 101 mmol/L (98-107); CREATININE - SERUM 0.7 mg/dL (0.6-1.3); POTASSIUM - SERUM 3.6 mmol/L (3.5-5.1); PROTEIN - SERUM 7.1 g/dL (6.4-8.2); SODIUM 136 mmol/L (136-145); UREA NITROGEN 8 mg/dL (7-18); eGFR NON AFRICAN AMERICAN > 90 mL/min (90-120)
[2020-04-21 06:27] LABS: GLUCOSE 165 mg/dL (74-106)
[2020-04-22] VITALS (24 sets, daily range): BP systolic 96–154; BP diastolic 63–109
[2020-04-22 06:34] LABS: BASOPHILS 0.4 % (0-2); EOSINOPHILS 3.2 % (0-7); HEMATOCRIT 32.9 % (42.0-54.0); HEMOGLOBIN 10.2 g/dL (13.5-17.5); IMMATURE GRANULOCYTES 0.6 % (0-5); LYMPHOCYTES 23.9 % (15-50); MCH 27.1 pg (26.0-34.0); MCV 87.5 fL (80.0-100.0); MONOCYTES 12.9 % (2-11); PLATELET COUNT 226 10x3/uL (130-400); RBC 3.76 10x6/uL (4.20-6.10); RDW 14.8 % (11.5-14.5); WBC 9.7 10x3/uL (4.8-10.8)
[2020-04-22 06:50] LABS: CALC OSMOLALITY 276 mosm/kg (275-300); CALCIUM 8.6 mg/dL (8.5-10.1); CARBON DIOXIDE 28.8 mmol/L (21.0-32.0); CHLORIDE - SERUM 103 mmol/L (98-107); CREATININE - SERUM 0.8 mg/dL (0.6-1.3); GLUCOSE 121 mg/dL (74-106); MAGNESIUM - SERUM 1.6 mg/dL (1.8-2.4); PHOSPHOROUS 4.9 mg/dL (2.5-4.9); POTASSIUM - SERUM 3.6 mmol/L (3.5-5.1); SODIUM 139 mmol/L (136-145); UREA NITROGEN 7 mg/dL (7-18); eGFR NON AFRICAN AMERICAN > 90 mL/min (90-120)
--- NOTE | 2020-04-22 09:02 | NUR ---
PT THRASHING IN BED. INCREASED SEDATION.
[2020-04-22 15:08] LABS: ACID FAST SMEAR Negative (()); AFB SPECIMEN PROCESSING Concentration (())
[2020-04-23] VITALS (23 sets, daily range): BP systolic 93–142; BP diastolic 64–92
[2020-04-23 05:14] LABS: HEMATOCRIT 32.8 % (42.0-54.0); HEMOGLOBIN 10.3 g/dL (13.5-17.5); MCH 27.5 pg (26.0-34.0); MCHC 31.4 g/dL (31.0-37.0); MCV 87.7 fL (80.0-100.0); MEAN PLATELET VOLUME 9.8 fL (7.4-10.4); RBC 3.74 10x6/uL (4.20-6.10); RDW 14.8 % (11.5-14.5)
[2020-04-23 05:15] LABS: PLATELET COUNT 307 10x3/uL (130-400)
[2020-04-23 05:33] LABS: ALBUMIN 2.6 g/dL (3.4-5.0); ALKALINE PHOSPHATASE 53 U/L (30-120); ALT (SGPT) 29 U/L (10-68); BILIRUBIN - TOTAL 0.37 mg/dL (0.2-1.3); CALC OSMOLALITY 276 mosm/kg (275-300); CALCIUM 8.8 mg/dL (8.5-10.1); CHLORIDE - SERUM 104 mmol/L (98-107); GLUCOSE 108 mg/dL (74-106); MAGNESIUM - SERUM 1.7 mg/dL (1.8-2.4); PHOSPHOROUS 4.1 mg/dL (2.5-4.9); POTASSIUM - SERUM 3.7 mmol/L (3.5-5.1); PRO BNP 113 pg/mL (0-125); PROTEIN - SERUM 7.5 g/dL (6.4-8.2); SODIUM 139 mmol/L (136-145); UREA NITROGEN 8 mg/dL (7-18); eGFR NON AFRICAN AMERICAN 86 mL/min (90-120)
[2020-04-23 05:46] LABS: EOSINOPHILS 4 % (0-7); LYMPHOCYTES 21 % (15-50); MONOCYTES 2 % (2-11); NEUTROPHILS 72 % (40-80); PLATELET ESTIMATE NORMAL
--- NOTE | 2020-04-23 07:00 | NUR ---
REC'D REPORT AND RESUMED CARE, ETT TO VENTILATION AND SECURED, O2 92% ON 50% FIO2, OTHER VSS, AROUSES TO VOICE, FOLLOWS COMMANDS, ORAL CARE AND SUCTION COMPLETED PER FLOWSHEET, ASSESSMENT COMPLETED PER FLOWSHEET, REPOSITIONED UP AND TO BACK WITH HEELS FLOATED,
--- NOTE | 2020-04-23 09:53 | NUR ---
Nutrition follow-up: Pt remains intubated; propofol off Glucerna 1.0 denisa @ 50 ml/hr Labs reviewed; glucose under good control Wt: 190# Recommend changing TF formula to Pulmocare @ 50 ml/hr to better meet pts estimated energy needs. RDN following.
--- NOTE | 2020-04-23 12:30 | NUR ---
SEDATION TITRATED DOWN FOR PENDING CPAP TRIAL PER DR KAY
--- NOTE | 2020-04-23 13:00 | NUR ---
CHANGED TO CPAP PER ORDER
--- NOTE | 2020-04-23 13:20 | NUR ---
HR 140'S, RESP 36, CHANGED BACK TO AC RATE ON VENT
[2020-04-23 14:09] LABS: FUNGUS STAIN Final report (())
--- NOTE | 2020-04-23 17:21 | MORECARE ---
CASE MANAGEMENT DISCHARGE SUMMARY PATIENT: DANITZA PATRICIO UNIT: [id number] ADM DATE: 04/09/20 AGE: 44 : 75 SEX: M ROOM/BED: D.2307 AUTHOR: RHYS BLAIR PHYSICIAN: REFERRING PHYSICIAN: ULICES WALKER MD DATE OF SERVICE: 04/23/20 Discharge Plan Patient Name: DANITZA PATRICIO [facility] [facility] 1975 Planned Disposition: Anticipated Discharge Date: Discharge Date: Expected LOS: Initial Reviewer: [email or web address] Initial Review Date: 04/09/2020 Generated: 04/23/20 6:20 pm Patient Name: DANITZA PATRICIO Page [id number] at 1721 All edits/amendments must be made on the electronic document DICTATION DATE: 04/23/201719 RFID TECHNICIAN: NIGEL 04/23/201719 RPT#: [id number] DC DATE: STATUS: ADM IN [facility] [address] [place] [address] END OF REPORT
--- NOTE | 2020-04-23 17:28 | MORECARE ---
CASE MANAGEMENT DISCHARGE SUMMARY PATIENT: DANITZA PATRICIO UNIT: [id number] ADM DATE: 04/09/20 AGE: 44 : 75 SEX: M ROOM/BED: D.2307 AUTHOR: ROSSY,DOC PHYSICIAN: REFERRING PHYSICIAN: ULICES WALKER MD DATE OF SERVICE: 04/23/20 Discharge Plan Patient Name: DANITZA PATRICIO Facility: [facility]:[place] : 1975 Planned Disposition: Anticipated Discharge Date: Discharge Date: Expected LOS: Initial Reviewer: [email or web address] Initial Review Date: 04/09/2020 Generated: 04/23/20 6:27 pm Comments DCP- Discharge Planning Updated by [email or web address]: Arianna Pearce on 04/23/20 4:[address] Patient Name: DANITZA PATRICIO Admission Status: ER Accout number: [id number] Admission Date: 04-09-2020 : 1975 Admission Diagnosis:ACUTE RESPIRATORY FAILURE WITH HYPOXIA Attending: CLAUDIA Current LOS: 14 Anticipated DC Date: Planned Disposition: Primary Insurance: [employer] ADV Discharge Planning Comments: CM met with patient's mother Rebecca to complete initial dc planning assessment. CM educated patient's mother on the CM role and verbal consent given by patient to complete assessment. Patient lived with a friend prior to admit. Patient is independent. At discharge patient plans to return to mother's home and feels this is a safe discharge. CM discussed availability of home health, rehab services, and medical equipment. Patient will have family to transport home. Patient denied known discharge needs at this time. CM will continue to follow and will assist as needed with dc plans/needs. Learning Center Instructor: Arianna Pearce DCPIA - Discharge Planning Initial Assessment Updated by [email or web address]: Arianna Pearce on 04/23/20 5:21 pm * Is the patient Alert and Oriented? Yes * How many steps to enter\exit or inside your home? * PCP RAFAEL MONTOYA * Pharmacy [facility] * ADLs Independent * Equipment None * List name and contact numbers for known caregivers / representatives who currently or will assist patient after discharge: REBECCA PATRICIO - MOTHER-POA - [phone] TALISHA PATRICIO - - [phone] * Community resources currently utilized None * Additional services required to return to the preadmission environment? No * Can the patient safely return to the preadmission environment? Yes * Has this patient been hospitalized within the prior 30 days at any hospital? No Last DP export: 04/23/20 4:21 p Patient Name: DANITZA PATRICIO Page [phone] at 1728 All edits/amendments must be made on the electronic document DICTATION DATE: 04/23/201726 CHIEF MERCHANDISING OFFICER: NIGEL 04/23/201726 RPT#: [id number] DC DATE: STATUS: ADM IN [facility] [address] [place] [address] END OF REPORT
[2020-04-24] VITALS (24 sets, daily range): BP systolic 94–120; BP diastolic 64–88
--- NOTE | 2020-04-24 07:00 | NUR ---
REC'S REPORT AND RESUMED CARE, ETT TO VENTILATION AND SECURED, OGT WITH TF INFUSING VSS, RIGHT UPPER ARM PICC WITH IVF PER IV FLOWSHEET, FENT AND VERSED IN USE, AROUSES TO DEEP STIMULI, ORAL CARE AND SUCTION COMPLETED, REPOSTITIONED FOR COMPFORT
--- NOTE | 2020-04-24 09:30 | NUR ---
SEDATION DECREASED BY HALF PER DR KAY, WAKING PATIENT UP TO SEE IF HE WILL FOLLOW COMMANDS
--- NOTE | 2020-04-24 10:00 | NUR ---
MONITORS ALARMING, HR 135, RESP 38, AND PULLING AGAINST RESTRAINTS, AND KICKING, SEDATION BACK ON PER ORDER
--- NOTE | 2020-04-24 17:45 | NUR ---
CONTINUES ON VENT WITH FENT AND VERSED IN USE, TF SET CLOGGED FLUSHED WITH H2O, NEW SRIRAM VALVE PLACE AND NEW TF SET
--- NOTE | 2020-04-24 22:36 | NUR ---
1900 BEDSIDE REPORT RECEIVED. PT. EYES ARE OPEN AND MOVING ARMS AND LEGS. ABLE TO FOLLOW SOME COMMANDS. WILL CONT. TO MONITOR
--- NOTE | 2020-04-24 23:28 | NUR ---
2000 PT. RESTING IN THE BED WITH EYES CLOSED. NO CHANGES AT THIS TIME. WILL CONT. TO MONITOR
[2020-04-25] VITALS (24 sets, daily range): BP systolic 87–125; BP diastolic 55–87
--- NOTE | 2020-04-25 00:10 | NUR ---
2300 NO CAHNGES NOTED AT THIS TIME. WILL CONT. TO MONITOR
--- NOTE | 2020-04-25 02:57 | NUR ---
0100 RESTING IN BED WITH EYES CLOSED, NO SIGNS OF DISCOMFORT OR DISTRESS. SUCTIONED ORAL SECRETIONS WITHOUT COMPLICATIONS. WILL CONTINUE TO MONITOR
--- NOTE | 2020-04-25 03:00 | NUR ---
NO CHANGES AT THIS TIME
[2020-04-25 04:55] LABS: BASOPHILS 1.2 % (0-2); EOSINOPHILS 4.2 % (0-7); HEMATOCRIT 32.4 % (42.0-54.0); HEMOGLOBIN 10.3 g/dL (13.5-17.5); IMMATURE GRANULOCYTES 0.2 % (0-5); LYMPHOCYTES 35.4 % (15-50); MCH 27.5 pg (26.0-34.0); MCHC 31.8 g/dL (31.0-37.0); MCV 86.6 fL (80.0-100.0); MEAN PLATELET VOLUME 9.7 fL (7.4-10.4); PLATELET COUNT 258 10x3/uL (130-400); RBC 3.74 10x6/uL (4.20-6.10); RDW 14.8 % (11.5-14.5); WBC 8.4 10x3/uL (4.8-10.8)
[2020-04-25 05:14] LABS: CALC OSMOLALITY 274 mosm/kg (275-300); CALCIUM 8.6 mg/dL (8.5-10.1); CARBON DIOXIDE 26.5 mmol/L (21.0-32.0); CHLORIDE - SERUM 104 mmol/L (98-107); CREATININE - SERUM 0.9 mg/dL (0.6-1.3); GLUCOSE 97 mg/dL (74-106); POTASSIUM - SERUM 3.5 mmol/L (3.5-5.1); SODIUM 138 mmol/L (136-145); UREA NITROGEN 9 mg/dL (7-18); eGFR NON AFRICAN AMERICAN > 90 mL/min (90-120)
--- NOTE | 2020-04-25 06:23 | NUR ---
0500 PT. REMAINS RESTING WITH EYES CLOSED. WILL RESPOND TO VERBAL STIMULI. TOLERATING TUBE FEEDS, NO RESIDUAL NOTED. NO SIGNS OF DISCOMFORT OR DISTRESS NOTED AT THIS TIME. WILL CONTINUE TO MONITOR
--- NOTE | 2020-04-25 07:15 | NUR ---
REPORT RECEIVED. ASSESSMENT COMPLETE PER FLOW SHEET. VSS. PT RESTING COMFORTABLY WILL CONTINUE TO MONITOR
--- NOTE | 2020-04-25 10:09 | NUR ---
Nutrition follow-up: Pt remains intubated, sedated Glucerna 1.0 denisa @ 50 ml/hr with pt tolerating Labs reviewed Wt: 174# Recommend increasing TF to goal rate of 75 ml/hr to better meet pts nutritional needs without propofol. RDN following.
--- NOTE | 2020-04-25 11:00 | NUR ---
0925 SWITCHED PATIENT TO PS 14 PEEP 8 FOR CPAP TRAIL 1050 SWITCHED PATIENT BACK TO ASSIST CONTROL. PATIENT FAILED CPAP TRAIL WITH RATE 62 / VT 282 / RSBI 225 / HR 101 / SPaO2 91% AND PATIENT BECAME AGITATED.
--- NOTE | 2020-04-25 19:00 | NUR ---
REPORT RECEIVED FROM OFF GOING NURSE. RECEIVED PT LAYING IN BED INTUBATED AND SEDATED WITH BILATERAL WRIST RESTRAINTS IN PLACE. SHIFT ASSESSMENT COMPLETED, SEE FLOWSHEET FOR DETAILS.
--- NOTE | 2020-04-25 22:00 | NUR ---
PT'S MOTHER CALLED REQUESTING IF THERE WAS ANYWAY SHE COULD TELL DANITZA HAPPY BIRTHDAY. I INFORMED HER THAT THERE WAS A PHONE IN THE ROOM AND I COULD HOLD IT UP TO HIS EAR FOR HER. UPON HEARING HIS MOM'S VOICE DANITZA OPENED HIS EYES AND HAD SOME CALM MOVEMENTS OF HEAD, FINGERS, AND LEGS. HE BLINKED IN UNDERSTANDING AND OVERALL WAS THE MOST CALM THIS NURSE HAS SEEN HIM WHILE AWAKE.
[2020-04-26] VITALS (23 sets, daily range): BP systolic 94–133; BP diastolic 65–84
[2020-04-26 04:39] LABS: CALC OSMOLALITY 277 mosm/kg (275-300); CALCIUM 8.4 mg/dL (8.5-10.1); CHLORIDE - SERUM 104 mmol/L (98-107); CREATININE - SERUM 0.9 mg/dL (0.6-1.3); GLUCOSE 110 mg/dL (74-106); POTASSIUM - SERUM 3.6 mmol/L (3.5-5.1); SODIUM 139 mmol/L (136-145); UREA NITROGEN 10 mg/dL (7-18); eGFR NON AFRICAN AMERICAN > 90 mL/min (90-120)
[2020-04-26 04:42] LABS: HEMOGLOBIN 10.5 g/dL (13.5-17.5); LYMPHOCYTES 35.1 % (15-50); MCH 28.3 pg (26.0-34.0); MCHC 32.8 g/dL (31.0-37.0); MCV 86.3 fL (80.0-100.0); MEAN PLATELET VOLUME 9.5 fL (7.4-10.4); NEUTROPHILS 52.7 % (40-80); PLATELET COUNT 240 10x3/uL (130-400); RBC 3.71 10x6/uL (4.20-6.10); RDW 14.3 % (11.5-14.5); WBC 9.5 10x3/uL (4.8-10.8)
--- NOTE | 2020-04-26 10:45 | NUR ---
PT BREATHING TOO RAPIDLY WITH SEDATION TURNED DOWN AND DURING CPAP TRIAL. STOPPED AND VENT SETTINGS ADJUSTED PER RT. SEDATION TURNED BACK UP.
--- NOTE | 2020-04-26 11:43 | NUR ---
TUBE FEED STARTED BACK. PT SUCTIONED. VSS.
--- NOTE | 2020-04-26 15:28 | NUR ---
DR GTZ CONSULTED FOR TRACH AND PEG. SPOKE WITH PT'S ABOUT PLAN. ATTEMPTED TO CALL PT'S MOTHER. WILL CONTINUE TO MONITOR.
[2020-04-27] VITALS (23 sets, daily range): BP systolic 99–126; BP diastolic 70–95
--- NOTE | 2020-04-27 00:20 | NUR ---
FEEDING OFF OF MIDNIGHT DUE TO SCHEDULED FOR TRACH AND PEG THIS AM.
[2020-04-27 05:07] LABS: BASOPHILS 0.9 % (0-2); EOSINOPHILS 3.3 % (0-7); HEMATOCRIT 34.6 % (42.0-54.0); HEMOGLOBIN 11.1 g/dL (13.5-17.5); IMMATURE GRANULOCYTES 0.2 % (0-5); LYMPHOCYTES 28.6 % (15-50); MCH 27.3 pg (26.0-34.0); MCHC 32.1 g/dL (31.0-37.0); MCV 85.2 fL (80.0-100.0); MONOCYTES 9.7 % (2-11); NEUTROPHILS 57.3 % (40-80); PLATELET COUNT 275 10x3/uL (130-400); RBC 4.06 10x6/uL (4.20-6.10); RDW 14.5 % (11.5-14.5); WBC 9.2 10x3/uL (4.8-10.8)
[2020-04-27 05:27] LABS: CALC OSMOLALITY 271 mosm/kg (275-300); CALCIUM 9.4 mg/dL (8.5-10.1); CARBON DIOXIDE 23.8 mmol/L (21.0-32.0); CHLORIDE - SERUM 102 mmol/L (98-107); CREATININE - SERUM 0.9 mg/dL (0.6-1.3); GLUCOSE 118 mg/dL (74-106); POTASSIUM - SERUM 3.6 mmol/L (3.5-5.1); SODIUM 136 mmol/L (136-145); UREA NITROGEN 11 mg/dL (7-18); eGFR NON AFRICAN AMERICAN > 90 mL/min (90-120)
--- NOTE | 2020-04-27 08:36 | NUR ---
PT NPO FOR TRACH AND PEG PLACEMENT TODAY.
--- NOTE | 2020-04-27 08:55 | NUR ---
GAVE PT A PARTIAL HIBCLENS BATH NECK AND ABD.
--- NOTE | 2020-04-27 12:28 | NUR ---
DR GTZ CALLED AND SAID HE WOULD BE OVER IN ABOUT AN HR TO PLACE TRACH. STATED PEG MAY BE PLACED AT A LATER TIME. INFORMED RESP THERAPIST, SATURNINO. ASKED IF SHE COULD GET THE 8.5 PERC TRACH FROM SURGERY.
--- NOTE | 2020-04-27 12:48 | NUR ---
Nutrition Follow-up: Chart reviewed. Plan for trach and PEG today per IDT. Most recent nursing notes indicate trach will happen today but PEG may be at a later time. Patient TF has been off since midnight last night. TF order: Glucerna 1.0 @ 75mL/hr, patient previously tolerating at 50mL/hr Last BM: rectal tube 04/24/20 Meds noted: SSI, miralax, d51/2NS@75. Labs noted: Glu 118(H) Recommend resume TF as soon as medically feasible, increasing towards goal of Glucerna 1.0 @ 75mL/hr. RD following.
--- NOTE | 2020-04-27 14:16 | NUR ---
DR GTZ PLACED BEDSIDE TRACH. FRESH TRACH PROTOCOL INITIATED. PT RESTING COMFORTABLY AT THIS TIME. VSS. WILL CONTINUE TO MONITOR.
--- NOTE | 2020-04-27 15:50 | NUR ---
NGT PLACED VIA LEFT NARE. AUSCULTATED IN STOMACH.
[2020-04-27 17:09] LABS: FUNGUS MYCOLOGY CULTURE Preliminary report (())
[2020-04-28] VITALS (24 sets, daily range): BP systolic 101–137; BP diastolic 68–94
--- NOTE | 2020-04-28 12:31 | NUR ---
NOTED PT MOVING IN BED, KICKING, MOVING LEGS OFF BED, AND TURNING ON SIDE. CALLED DR KAY, MAXED ON FENTANYL AND VERSED. PER DR KAY, START DIPROVAN, AND DECREASE FENTANYL IF ABLE.
[2020-04-29] VITALS (21 sets, daily range): BP systolic 92–124; BP diastolic 61–88
--- NOTE | 2020-04-29 07:10 | NUR ---
REPORT RECEIVED FROM OFF GOING NURSE AND PATIENT CARE ASSUMED. PATIENT LAYING IN BED ON BACK WITH HOB ELEVATED 30 DEGREES. FRESH TRACH INTACT WITH DRSG C/D/I. VENT IN PLACE AT AC R16 FIO2 30 TV550 AND PEEP8. TUBE FEEDING NG GLUCERMA AT 20 ML/10 ML FLUSH Q HROUR. GROSSMAN CATHETER IN PLACE DRAINING CLEAR GOLD URINE. RECTAL TUBE IN TACT WITH BROWN LQUID STOOL IN BAG. VSS. WILL CONTINUE WITH PLAN OF CARE. SR UP X 2 BED IN LOW POSITION AND CALL LIGHT IN REACH.
[2020-04-29 09:00] LABS: BASOPHILS 0.6 % (0-2); EOSINOPHILS 2.9 % (0-7); HEMATOCRIT 34.4 % (42.0-54.0); IMMATURE GRANULOCYTES 0.3 % (0-5); LYMPHOCYTES 34.1 % (15-50); MCH 27.5 pg (26.0-34.0); NEUTROPHILS 46.1 % (40-80); PLATELET COUNT 265 10x3/uL (130-400); WBC 7.8 10x3/uL (4.8-10.8)
[2020-04-29 09:11] LABS: ALBUMIN 2.9 g/dL (3.4-5.0); ALKALINE PHOSPHATASE 58 U/L (30-120); ALT (SGPT) 20 U/L (10-68); BILIRUBIN - TOTAL 0.44 mg/dL (0.2-1.3); CALC OSMOLALITY 272 mosm/kg (275-300); CALCIUM 9.2 mg/dL (8.5-10.1); CARBON DIOXIDE 21.3 mmol/L (21.0-32.0); CHLORIDE - SERUM 101 mmol/L (98-107); CREATININE - SERUM 0.9 mg/dL (0.6-1.3); GLUCOSE 90 mg/dL (74-106); PROTEIN - SERUM 7.9 g/dL (6.4-8.2); SODIUM 137 mmol/L (136-145); UREA NITROGEN 11 mg/dL (7-18); eGFR NON AFRICAN AMERICAN > 90 mL/min (90-120)
[2020-04-30] VITALS (22 sets, daily range): BP systolic 92–133; BP diastolic 62–91
--- NOTE | 2020-04-30 07:10 | NUR ---
REPORT RECIEVED FROM OFF GOING NURSE AND PATIENT CARE ASSUMED. PATIENT LAYING IN BED ON RT SIDE. REPOSITIONED PATIENT TO LEFT SIDE. PATIENT IS SEDATED WITH TRACH AND VENT AC 16 FIO2 30% TV 550 PEEP 8. VSS. GROSSMAN CATHETER INTACT WITH CLEAR YELLOW URINE DRAINING RECTAL TUBE INTACT DRAINING BROWN LIQUID STOOL. EKATERINA SOFT WRIST RESTRAINTS IN PLACE. WILL CONTINUE WITH PLAN OF CARE.
[2020-04-30 08:19] LABS: ALBUMIN 2.8 g/dL (3.4-5.0); ALKALINE PHOSPHATASE 68 U/L (30-120); ALT (SGPT) 21 U/L (10-68); BILIRUBIN - TOTAL 0.25 mg/dL (0.2-1.3); CALC OSMOLALITY 271 mosm/kg (275-300); CALCIUM 8.6 mg/dL (8.5-10.1); CARBON DIOXIDE 22.3 mmol/L (21.0-32.0); CHLORIDE - SERUM 103 mmol/L (98-107); CREATININE - SERUM 0.7 mg/dL (0.6-1.3); GLUCOSE 133 mg/dL (74-106); POTASSIUM - SERUM 3.5 mmol/L (3.5-5.1); PROTEIN - SERUM 7.7 g/dL (6.4-8.2); SODIUM 136 mmol/L (136-145); eGFR NON AFRICAN AMERICAN > 90 mL/min (90-120)
[2020-04-30 08:20] LABS: UREA NITROGEN 7 mg/dL (7-18)
[2020-04-30 09:04] LABS: BASOPHILS 1.1 % (0-2); EOSINOPHILS 3.4 % (0-7); HEMATOCRIT 32.7 % (42.0-54.0); HEMOGLOBIN 10.8 g/dL (13.5-17.5); IMMATURE GRANULOCYTES 0.2 % (0-5); LYMPHOCYTES 27.4 % (15-50); MCH 27.9 pg (26.0-34.0); MCV 84.5 fL (80.0-100.0); MEAN PLATELET VOLUME 9.5 fL (7.4-10.4); MONOCYTES 14.2 % (2-11); NEUTROPHILS 53.7 % (40-80); PLATELET COUNT 255 10x3/uL (130-400); RBC 3.87 10x6/uL (4.20-6.10); RDW 14.1 % (11.5-14.5)
[2020-04-30 09:07] LABS: WBC 5.6 10x3/uL (4.8-10.8)
--- NOTE | 2020-04-30 11:10 | NUR ---
Nutrition follow-up: Pt s/p trach 04/27; PEG tube 05/01 Glucerna 1.0 denisa @ 30 ml/hr to increase to goal rate of 50 ml/hr Labs reviewed Wt: 176# RDN following.
[2020-04-30 17:08] LABS: FUNGUS CULTURE RESULT 1 Candida glabrata (())
[2020-05-01] VITALS (24 sets, daily range): BP systolic 91–138; BP diastolic 59–96
--- NOTE | 2020-05-01 03:30 | NUR ---
0200 TEMP 103.1 PT CONINUES TO FLUCTUATE BETWEEN SVT AND SINUS TACHYCARDIA IN 140S. PROJECTOR BOOTH OPERATOR NOTIFIED WITH NEW ORDERS FOR ACETAMINOPHEN 650 MG PER NG AND METOPROLOL 5 MG IV. ENVIRONMENT COOLED. PT REMAINS SEDARED ON VENT TO TRACH. NAD NOTED AT THIS TIME. WILL CONTINUE TO MONITOR
[2020-05-01 04:35] LABS: BASOPHILS 0.6 % (0-2); EOSINOPHILS 0.6 % (0-7); HEMATOCRIT 34.6 % (42.0-54.0); HEMOGLOBIN 11.2 g/dL (13.5-17.5); IMMATURE GRANULOCYTES 0.2 % (0-5); LYMPHOCYTES 11.8 % (15-50); MCH 27.3 pg (26.0-34.0); MCHC 32.4 g/dL (31.0-37.0); MCV 84.4 fL (80.0-100.0); MEAN PLATELET VOLUME 9.6 fL (7.4-10.4); MONOCYTES 12.1 % (2-11); NEUTROPHILS 74.7 % (40-80); PLATELET COUNT 282 10x3/uL (130-400); RDW 13.9 % (11.5-14.5); WBC 10.8 10x3/uL (4.8-10.8)
[2020-05-01 04:53] LABS: CALC OSMOLALITY 268 mosm/kg (275-300); CALCIUM 8.5 mg/dL (8.5-10.1); CHLORIDE - SERUM 101 mmol/L (98-107); CREATININE - SERUM 0.8 mg/dL (0.6-1.3); GLUCOSE 153 mg/dL (74-106); SODIUM 134 mmol/L (136-145); UREA NITROGEN 7 mg/dL (7-18); eGFR NON AFRICAN AMERICAN > 90 mL/min (90-120)
[2020-05-01 04:54] LABS: POTASSIUM - SERUM 4.1 mmol/L (3.5-5.1)
--- NOTE | 2020-05-01 07:00 | NUR ---
RECIEVED BEDSIDE REPORT ON PATIENT AND ASSUMED CARE. PATIENT SEDATED ON VENT, TRACH PLACED ON 04/27/2020, DRESSING C/D/I, VENT SETTINGS ARE AC 16, TV 550, PEEP 8, FIO2 30%, SPO2 99%, BBS - CLEAR BUT DIMINISHED IN THE BASES, GROSSMAN CATH IN PLACE WITH 650 ML OF MARCUS, CLEAR UOP NOTED. RECTAL TUBE IN PLACE WITH LIQUID STOOL NOTED. PATIENT TURNED AND REPOSITIONED IN BED. VSS. HR 112 ON CM NS. RESTRAINTS IN PLACE. HEAD TO TOE ASSESSMENT COMPLETED.
[2020-05-01 08:10] LABS: C-REACTIVE PROTEIN 4.4 mg/dL (0.0-0.9)
--- NOTE | 2020-05-01 08:44 | NUR ---
BLOOD CULTURES AND URINE CULTURES DRAWN AND SENT TO LAB.
[2020-05-01 08:56] LABS: ERYTHROCYTE SEDIMENTATION RATE 66 mm/hr (0-15)
--- NOTE | 2020-05-01 09:00 | NUR ---
PATIENT TURNED AND REPOSITONED IN BED. VSS. DR. ARIAS AT ROOM FOR PEG TUBE PLACEMENT.
--- NOTE | 2020-05-01 10:34 | NUR ---
COMPLETE CHG BATH GIVEN AND LINEN CHANGE. PATIENT TURNED AND REPOSITIONED IN BED. VSS.
--- NOTE | 2020-05-01 11:11 | NUR ---
REASSESSMENT COMPLETED. VSS. PEG TUBE TO LEFT UPPER QUADRANT, DRESSING C/D/I, STOOL SAMPLE OBTAINED FOR CDIFF TEST AND SENT TO LAB. PATIENT TURNED AND REPOSITIONED.
--- NOTE | 2020-05-01 12:19 | NUR ---
DR. AGUSTIN AT ROOM UPDATED AND EXAMINES PATIENT. WILL DO BRONCHOSCOPY TODAY AFTER ROUNDS. WILL ALSO SPEAK TO PATIENTS MOTHER TO ANSWER QUESTIONS AND UPDATE.
--- NOTE | 2020-05-01 12:51 | NUR ---
PATIENT TURNED AND REPOSITIONED IN BED. VSS.
--- NOTE | 2020-05-01 15:00 | NUR ---
REASSESSMENT COMPLETED. VSS. TURNED AND REPOSTIONED IN BED.
--- NOTE | 2020-05-01 16:51 | NUR ---
PATIENT TURNED AND REPOSITIONED IN BED. TUBE FEEDING RESTARTED. VSS.
--- NOTE | 2020-05-01 17:52 | NUR ---
DR. AGUSTIN NOTIFIED OF POSTIVE SPUTUM FOR GRAM POSITIVE COCCI AND STOOL FOR CDIFF ANTIGEN POSITIVE BUT NEGATIVE FOR CDIFF TOXIN. PATIENT IN DROPLET AND ENTERIC ISOLATION.
[2020-05-02] VITALS (23 sets, daily range): BP systolic 90–139; BP diastolic 65–99
[2020-05-02 04:32] LABS: BASOPHILS 0.2 % (0-2); EOSINOPHILS 2.6 % (0-7); HEMATOCRIT 33.5 % (42.0-54.0); HEMOGLOBIN 10.7 g/dL (13.5-17.5); IMMATURE GRANULOCYTES 1.2 % (0-5); LYMPHOCYTES 23.2 % (15-50); MCHC 31.9 g/dL (31.0-37.0); MCV 84.6 fL (80.0-100.0); MEAN PLATELET VOLUME 9.7 fL (7.4-10.4); MONOCYTES 10.6 % (2-11); NEUTROPHILS 62.2 % (40-80); PLATELET COUNT 295 10x3/uL (130-400); RBC 3.96 10x6/uL (4.20-6.10); RDW 13.9 % (11.5-14.5)
[2020-05-02 04:45] LABS: CALC OSMOLALITY 272 mosm/kg (275-300); CALCIUM 8.4 mg/dL (8.5-10.1); CARBON DIOXIDE 26.8 mmol/L (21.0-32.0); CHLORIDE - SERUM 101 mmol/L (98-107); CREATININE - SERUM 0.7 mg/dL (0.6-1.3); GLUCOSE 120 mg/dL (74-106); MAGNESIUM - SERUM 1.6 mg/dL (1.8-2.4); PHOSPHOROUS 4.3 mg/dL (2.5-4.9); POTASSIUM - SERUM 3.5 mmol/L (3.5-5.1); SODIUM 137 mmol/L (136-145); UREA NITROGEN 7 mg/dL (7-18); eGFR NON AFRICAN AMERICAN > 90 mL/min (90-120)
--- NOTE | 2020-05-02 07:00 | NUR ---
PATIENT SEDATED ON DIPRIVAN AT 50 MCG/KG/MIN, FENTANYL 100 MCG/HOUR, VERSED 5 MG HOUR. TRACH SECURE TO VENT NO BLEEDING OR DRAINAGE AROUND TRACH. BILATERAL LUNG SOUNDS EQUAL. GROSSMAN CATH PATENT. RIGHT UPPER ARM PICC LINE DRESSING DRY AND INTACT. RECTAL TUBE WITH ALOT OF GAS IN LINE AND BAG RIGHT NOW. MONITOR SR. NO DISTRESS. PATIENT BREATHING WITH THE VENT.
--- NOTE | 2020-05-02 10:48 | NUR ---
COMPLETE HIBCLENS BATH GIVEN. GROSSMAN CATH CARE DONE. PICC LINE DRESSING CHANGE DONE IN MARKETING COORDINATOR. NEW IV LINE FOR DIPRIVAN UP. BUTTOCK WITH OPEN AREAS ON BOTH BUTTOCK STAGE 2 NOTED. MEDIPLEX APPLIEDL BOTH AREAS QUARTER SIZE, MINIMAL DRAINAGE
--- NOTE | 2020-05-02 12:43 | NUR ---
Nutrition follow-up: Pt remains intubated, seadted with propofol @ 30 ml/hr s/p Trach/PEG placement Glucerna 1.0 denisa infusing @ 40 ml/hr; goal rate 50 ml/hr while pt on propofol Labs reviewed Wt: 179# RDN following.
--- NOTE | 2020-05-02 12:56 | OP ---
PATIENT NAME: DANITZA PATRICIO MEDICAL RECORD: [id number] :75 LOCATION:D.[facility] D.2307 ADMISSION DATE:04/09/20 SURGEON: MIGUEL GTZ MD DATE OF OPERATION: 04/27/2020 PREOPERATIVE DIAGNOSES: 1. Acute renal failure, on the ventilator. 2. Pneumonia. 3. Methamphetamine overdose. 4. Upper GI bleed with gastric ulcers. 5. Acute renal failure, resolved. POSTOPERATIVE DIAGNOSES: 1. Acute renal failure, on the ventilator. 2. Pneumonia. 3. Methamphetamine overdose. 4. Upper GI bleed with gastric ulcers. 5. Acute renal failure, resolved. PROCEDURE: A 7-[place] Islander percutaneous tracheostomy tube placement. SURGEON: Miguel Gtz MD REPORT OF PROCEDURE: The patient's neck was prepped and draped in sterile fashion. A bronchoscope was advanced through the indwelling endotracheal tube and we pulled this back until we could see the distal aspect of the cricoid cartilage. We then made a small longitudinal incision 2 fingerbreadths above the sternal notch and I was able to palpate down and feel the patient's tracheal rings. An Angiocath needle was brought through the second, third tracheal ring and we were able to pass the wire with ease. Over this wire, the dilator was placed followed by the white Rhino dilator. We then inserted the 7-[place] Islander tracheostomy tube and sutured this down on 4 sides using interrupted 2-0 Prolene. We reinserted the bronchoscope through the tube and went down and I was able to suction out any blood that was present and assured there was no sign of any active bleeding. I then got a culture sample of the patient's right lower lobe bronchus and sent this off for specimen. COMPLICATIONS: None. CONDITION: Fair. ANESTHESIA: General endotracheal. BLOOD LOSS: Minimal. Procedure done at the bedside. NTS:[id number] Voice Confirmation ID: [id number] DOCUMENT ID: [id number] OPERATIVE REPORT [id number] DANITZA PATRICIO CHRISTIAN MD at 1256 CC: [id number] DICTATION DATE: 04/27/20 1500 UNDERWRITING MANAGER: 04/28/20 0103 ADM IN [place] [place] [address]
--- NOTE | 2020-05-02 12:56 | OP ---
PATIENT NAME: DANITZA PATRICIO MEDICAL RECORD: [id number] :75 LOCATION:D.[facility] D.2307 ADMISSION DATE:04/09/20 SURGEON: MIGUEL GTZ MD DATE OF OPERATION: 05/01/2020 PREOPERATIVE DIAGNOSES: 1. Acute respiratory failure on the ventilator. 2. Methamphetamine overdose. 3. Diabetes mellitus. 4. Pneumonia. 5. Acute renal failure. POSTOPERATIVE DIAGNOSES: 1. Acute respiratory failure on the ventilator. 2. Methamphetamine overdose. 3. Diabetes mellitus. 4. Pneumonia. 5. Acute renal failure. PROCEDURE: PEG tube placement. SURGEON: Miguel Gtz MD REPORT OF PROCEDURE: An Olympus endoscope was advanced through the mouth and esophagus. As we entered the stomach, this was insufflated and we were able to find an area in the antrum of the stomach to house our feeding tube. The stomach was then prepped and draped in sterile fashion. A 5 cc of 1% lidocaine was infused into the subcutaneous tissues. An 11 blade was used to make a skin incision. We then inserted an Angiocath needle through this incision into the gastric lumen. A guidewire was advanced through this and grasped with an Endo snare. We then pulled these through the mouth and esophagus and affixed them to the PEG. The wire and PEG tube were pulled through the mouth and esophagus and through the abdominal wall until it rested at 4 cm at the skin. We readvanced the scope down through the mouth and esophagus and once in the stomach, we could see that the PEG tube was in good position in the antrum of the stomach with no sign of any bleeding. COMPLICATIONS: None. CONDITION: Stable. ANESTHESIA: General endotracheal and local. BLOOD LOSS: Minimal. Procedure done in the ICU at the bedside. TRANSINT:[id number] Voice Confirmation ID: [id number] DOCUMENT ID: [id number] OPERATIVE REPORT [id number] DANITZA PATRICIO CHRISTIAN MD at 1256 CC: [id number] DICTATION DATE: 05/01/20912 WIND TURBINE MECHANICAL ENGINEER: 05/01/20 1537 ADM IN [place] [place] [address]
--- NOTE | 2020-05-02 13:34 | MORECARE ---
CASE MANAGEMENT DISCHARGE SUMMARY PATIENT: DANITZA PATRICIO UNIT: [id number] ADM DATE: 04/09/20 AGE: 45 : 75 SEX: M ROOM/BED: D.2307 AUTHOR: ROSSY,DOC PHYSICIAN: REFERRING PHYSICIAN: ULICES WALKER MD DATE OF SERVICE: 05/02/20 Discharge Plan Patient Name: DANITZA PATRICIO Facility: [facility]:[place] : 1975 Planned Disposition: Anticipated Discharge Date: Discharge Date: Expected LOS: Initial Reviewer: [email or web address] Initial Review Date: 04/09/2020 Generated: 05/02/20 2:34 pm DCP- Discharge Planning Updated by [email or web address]: Arianna Pearce on 04/23/20 4:[address] Patient Name: DANITZA PATRICIO Admission Status: ER Accout number: [id number] Admission Date: 04-09-2020 : 1975 Admission Diagnosis:ACUTE RESPIRATORY FAILURE WITH HYPOXIA Attending: CLAUDIA Current LOS: 14 Anticipated DC Date: Planned Disposition: Primary Insurance: WELL[employer] MEDICARE ADV Discharge Planning Comments: CM met with patient's mother Rebecca to complete initial dc planning assessment. CM educated patient's mother on the CM role and verbal consent given by patient to complete assessment. Patient lived with a friend prior to admit. Patient is independent. At discharge patient plans to return to mother's home and feels this is a safe discharge. CM discussed availability of home health, rehab services, and medical equipment. Patient will have family to transport home. Patient denied known discharge needs at this time. CM will continue to follow and will assist as needed with dc plans/needs. Ux Developer: Arianna Pearce DCPIA - Discharge Planning Initial Assessment Updated by [email or web address]: Arianna Pearce on 04/23/20 5:21 pm * Is the patient Alert and Oriented? Yes * How many steps to enter\exit or inside your home? * PCP RAFAEL MONTOYA * Pharmacy [facility] * ADLs Independent * Equipment None * List name and contact numbers for known caregivers / representatives who currently or will assist patient after discharge: REBECCA BARRE - MOTHER-POA - [phone] LARICHA BARRE - - [phone] * Community resources currently utilized None * Additional services required to return to the preadmission environment? No * Can the patient safely return to the preadmission environment? Yes * Has this patient been hospitalized within the prior 30 days at any hospital? No External Providers External Provider: [facility] Next Contact Date: Service Request Date: Service Type: Resolution: Reviewer: Comments: Last DP export: 04/23/20 4:28 p Patient Name: DANITZA PATRICIO Page [phone] at 1334 All edits/amendments must be made on the electronic document DICTATION DATE: 05/02/20 133 GLOBAL CEO: NIGEL 05/02/20 1334 RPT#: [id number] DC DATE: STATUS: ADM IN [facility] [address] [place] [address] END OF REPORT
[2020-05-03] VITALS (20 sets, daily range): BP systolic 94–168; BP diastolic 62–808
[2020-05-03 06:28] LABS: CALC OSMOLALITY 272 mosm/kg (275-300); CALCIUM 8.4 mg/dL (8.5-10.1); CARBON DIOXIDE 25.7 mmol/L (21.0-32.0); CHLORIDE - SERUM 102 mmol/L (98-107); CREATININE - SERUM 0.6 mg/dL (0.6-1.3); GLUCOSE 118 mg/dL (74-106); MAGNESIUM - SERUM 1.7 mg/dL (1.8-2.4); POTASSIUM - SERUM 3.4 mmol/L (3.5-5.1); SODIUM 137 mmol/L (136-145); UREA NITROGEN 8 mg/dL (7-18); VANCOMYCIN - TROUGH 9.8 ug/mL (10.0-20.0); eGFR NON AFRICAN AMERICAN > 90 mL/min (90-120)
[2020-05-03 06:32] LABS: HEMATOCRIT 32.2 % (42.0-54.0); HEMOGLOBIN 10.4 g/dL (13.5-17.5); LYMPHOCYTES 38.9 % (15-50); MCH 27.3 pg (26.0-34.0); MCHC 32.3 g/dL (31.0-37.0); MCV 84.5 fL (80.0-100.0); MEAN PLATELET VOLUME 9.4 fL (7.4-10.4); NEUTROPHILS 24.5 % (40-80); PLATELET COUNT 265 10x3/uL (130-400); RBC 3.81 10x6/uL (4.20-6.10); RDW 13.1 % (11.5-14.5)
[2020-05-03 06:34] LABS: WBC 4.4 10x3/uL (4.8-10.8)
--- NOTE | 2020-05-03 08:00 | NUR ---
OPENS EYES TO STIMULATION. TRACH SECURE TO VENT. BILATERAL LUNG SOUNDS CLEAR AND EQUAL. GROSSMAN CATH PATENT. RECTAL TUBE WITH LIQUID BROWN STOOL. MONITOR ST. PEG INFUSING WITH GLUCERNA AT 50 ML HOUR. RIGHT UPPER ARM PICC DRESSING DRY AND INTACT INFUSING WITH DIPRIVAN AT 40 MCG/KG/MIN VERSED TURNED OFF. FENTANYL INCREASED TO 150 MCG/HOUR. HEEL PROTECTORS ON, SCD ON LOWER LEGS.
--- NOTE | 2020-05-03 09:47 | NUR ---
PS 10
--- NOTE | 2020-05-03 15:20 | NUR ---
DIALYSIS IN PROGRESS, 2ND UNIT OF BLOOD INFUSING. PATIENT SLEEPY, NEEDS STIMULATION TO STAY AWAKE. NO DISTRESS. POOR APPETITE. PD CATH IN ABD DRESSING DRY ANDINTACT. LARGE AMOUNT BRUISING NOTED IN LOWER ABD AND LEFT ARM. GOOD THRILL LEFT LOWER ARM
[2020-05-03 19:08] LABS: ACID FAST SMEAR Negative (()); AFB SPECIMEN PROCESSING Concentration (())
--- NOTE | 2020-05-03 20:05 | MORECARE ---
CASE MANAGEMENT DISCHARGE SUMMARY PATIENT: DANITZA PATRICIO UNIT: [id number] ADM DATE: 04/09/20 AGE: 45 : 75 SEX: M ROOM/BED: D.2307 AUTHOR: ROSSY,DOC PHYSICIAN: REFERRING PHYSICIAN: ULICES WALKER MD DATE OF SERVICE: 05/03/20 Discharge Plan Patient Name: DANITZA PATRICIO Facility: [facility]:[place] : 1975 Planned Disposition: Anticipated Discharge Date: Discharge Date: Expected LOS: Initial Reviewer: [email or web address] Initial Review Date: 04/09/2020 Generated: 05/03/20 9:05 pm Comments DCP- Discharge Planning Updated by [email or web address]: Arianna Pearce on 05/03/20 7:[address] Late Entry 05/01/20 Patient getting PEG placed today. CM spoke with Patients mother and she agreed to LTACH in / [place] area. Patient's mother also requested a letter for court stating dates of admission. CM completed the letter and faxed to requested numbers. CM will continue to follow and assist. 05/02/20 CM called and spoke with Lui at [facility] in faxed records. CM is awaiting insurance auth for LTACH. CM will continue to follow and assist as needed with discharge planning / needs. DCP- Discharge Planning Updated by [email or web address]: Arianna Pearce on 04/23/20 4:[address] Patient Name: DANITZA PATRICIO Admission Status: ER Accout number: [id number] Admission Date: 04-09-2020 : 1975 Admission Diagnosis:ACUTE RESPIRATORY FAILURE WITH HYPOXIA Attending: CLAUDIA Current LOS: 14 Anticipated DC Date: Planned Disposition: Primary Insurance: WELLCARE MEDICARE ADV Discharge Planning Comments: CM met with patient's mother Rebecca to complete initial dc planning assessment. CM educated patient's mother on the CM role and verbal consent given by patient to complete assessment. Patient lived with a friend prior to admit. Patient is independent. At discharge patient plans to return to mother's home and feels this is a safe discharge. CM discussed availability of home health, rehab services, and medical equipment. Patient will have family to transport home. Patient denied known discharge needs at this time. CM will continue to follow and will assist as needed with dc plans/needs. House Father: Arianna Pearce DCPIA - Discharge Planning Initial Assessment Updated by [email or web address]: Arianna Pearce on 04/23/20 5:21 pm * Is the patient Alert and Oriented? Yes * How many steps to enter\exit or inside your home? * PCP RAFAEL MONTOYA * Pharmacy [facility] * ADLs Independent * Equipment None * List name and contact numbers for known caregivers / representatives who currently or will assist patient after discharge: REBECCA PATRICIO - MOTHER-POA - [phone] TALISHA BADGER Antonia - [phone] * Community resources currently utilized None * Additional services required to return to the preadmission environment? No * Can the patient safely return to the preadmission environment? Yes * Has this patient been hospitalized within the prior 30 days at any hospital? No Last DP export: 05/02/20 12:34 pm Patient Name: DANITZA PATRICIO Page [phone] at 2005 All edits/amendments must be made on the electronic document DICTATION DATE: 05/03/202004 HOUSE CLEANER: NIGEL 05/03/20 2005 RPT#: [id number] DC DATE: STATUS: ADM IN [facility] [address] [place] [address] END OF REPORT
[2020-05-04] VITALS (23 sets, daily range): BP systolic 103–190; BP diastolic 65–102
[2020-05-04 04:23] LABS: BASOPHILS 1.3 % (0-2); EOSINOPHILS 9.9 % (0-7); HEMATOCRIT 32.2 % (42.0-54.0); HEMOGLOBIN 10.3 g/dL (13.5-17.5); IMMATURE GRANULOCYTES 0.4 % (0-5); LYMPHOCYTES 34.4 % (15-50); MCH 27.1 pg (26.0-34.0); MCV 84.7 fL (80.0-100.0); PLATELET COUNT 253 10x3/uL (130-400); RDW 13.7 % (11.5-14.5); WBC 4.7 10x3/uL (4.8-10.8)
[2020-05-04 04:46] LABS: CALC OSMOLALITY 280 mosm/kg (275-300); CALCIUM 8.4 mg/dL (8.5-10.1); CARBON DIOXIDE 28.1 mmol/L (21.0-32.0); CHLORIDE - SERUM 104 mmol/L (98-107); CREATININE - SERUM 0.6 mg/dL (0.6-1.3); GLUCOSE 133 mg/dL (74-106); POTASSIUM - SERUM 3.2 mmol/L (3.5-5.1); SODIUM 141 mmol/L (136-145); UREA NITROGEN 6 mg/dL (7-18); eGFR NON AFRICAN AMERICAN > 90 mL/min (90-120)
--- NOTE | 2020-05-04 07:30 | NUR ---
VASCULAR ACCESS NURSE, LETTY, HERE TO TAKE OUT OLD PICC AND PLACE NEW PICC TO LEFT ARM. ALL NEW TUBING AND MEDICATIONS TO BE CHANGED OUT.
--- NOTE | 2020-05-04 09:00 | NUR ---
PS 10
--- NOTE | 2020-05-04 10:46 | NUR ---
Nutrition follow-up: s/p trach, PEG Pt remains intubated, sedated with propofol @ 40 ml/hr Glucerna @ 50 ml/hr; pt tolerating Labs reviewed WT: 179# rectal tube RDN following.
--- NOTE | 2020-05-04 12:19 | NUR ---
DR VAMSI FELIX. NO NEW ORDERS AT THIS TIME.
[2020-05-04 14:10] LABS: FUNGUS STAIN Final report (())
--- NOTE | 2020-05-04 16:09 | MORECARE ---
CASE MANAGEMENT DISCHARGE SUMMARY PATIENT: DANITZA PATRICIO UNIT: [id number] ADM DATE: 04/09/20 AGE: 45 : 75 SEX: M ROOM/BED: D.2307 AUTHOR: ROSSY,DOC PHYSICIAN: REFERRING PHYSICIAN: ULICES WALKER MD DATE OF SERVICE: 05/04/20 Discharge Plan Patient Name: DANITZA PATRICIO Facility: [facility]:[place] : 1975 Planned Disposition: Anticipated Discharge Date: Discharge Date: Expected LOS: Initial Reviewer: [email or web address] Initial Review Date: 04/09/2020 Generated: 05/04/20 5:08 pm Comments DCP- Discharge Planning Updated by [email or web address]: Arianna Pearce on 05/03/20 7:[address] Late Entry 05/01/20 Patient getting PEG placed today. CM spoke with Patients mother and she agreed to LTACH in / [place] area. Patient's mother also requested a letter for court stating dates of admission. CM completed the letter and faxed to requested numbers. CM will continue to follow and assist. 05/02/20 CM called and spoke with Lui at [facility] in faxed records. CM is awaiting insurance auth for LTACH. CM will continue to follow and assist as needed with discharge planning / needs. DCP- Discharge Planning Updated by [email or web address]: Arianna Pearce on 04/23/20 4:[address] Patient Name: DANITZA PATRICIO Admission Status: ER Accout number: [id number] Admission Date: 04-09-2020 : 1975 Admission Diagnosis:ACUTE RESPIRATORY FAILURE WITH HYPOXIA Attending: CLAUDIA Current LOS: 14 Anticipated DC Date: Planned Disposition: Primary Insurance: WELL[employer] MEDICARE ADV Discharge Planning Comments: CM met with patient's mother Rebecca to complete initial dc planning assessment. CM educated patient's mother on the CM role and verbal consent given by patient to complete assessment. Patient lived with a friend prior to admit. Patient is independent. At discharge patient plans to return to mother's home and feels this is a safe discharge. CM discussed availability of home health, rehab services, and medical equipment. Patient will have family to transport home. Patient denied known discharge needs at this time. CM will continue to follow and will assist as needed with dc plans/needs. Audience Development Manager: Arianna Pearce DCPIA - Discharge Planning Initial Assessment Updated by [email or web address]: Arianna Pearce on 04/23/20 5:21 pm * Is the patient Alert and Oriented? Yes * How many steps to enter\exit or inside your home? * PCP RAFAEL MONTOYA * Pharmacy [facility] * ADLs Independent * Equipment None * List name and contact numbers for known caregivers / representatives who currently or will assist patient after discharge: REBECCA PATRICIO - MOTHER-POA - [phone] [facility] - [phone] * Community resources currently utilized None * Additional services required to return to the preadmission environment? No * Can the patient safely return to the preadmission environment? Yes * Has this patient been hospitalized within the prior 30 days at any hospital? No Last DP export: 05/03/20 7:05 pm Patient Name: DANITZA PATRICIO Page [phone] at 1609 All edits/amendments must be made on the electronic document DICTATION DATE: 05/04/201607 HYGIENE ASSISTANT: NIGEL 05/04/201607 RPT#: [id number] DC DATE: STATUS: ADM IN [facility] [address] [place] [address] END OF REPORT
[2020-05-05] VITALS (24 sets, daily range): BP systolic 93–168; BP diastolic 63–92
[2020-05-05 05:57] LABS: POTASSIUM - SERUM 3.5 mmol/L (3.5-5.1); VANCOMYCIN - TROUGH 12.2 ug/mL (10.0-20.0)
--- NOTE | 2020-05-05 08:55 | NUR ---
NO ACUTE DISTRESS NOTED. VSS. PT WAKES UP AND KICKS LEGS WHEN STIMULATED. TURNED Q2H. ORAL CARE PROVIDED Q2H. WILL CONTINUE PLAN OF CARE.
--- NOTE | 2020-05-05 16:58 | NUR ---
NO ACUTE DISTRESS NOTED. NO CHANGE. VSS. BED ALARM ON. GROSSMAN CARE PROVIDED. WILL CONTINUE PLAN OF CARE.
--- NOTE | 2020-05-05 20:00 | NUR ---
REC'D REPORT FROM OFF-GOING NURSE, WITH BEDSIDE SHIFT REPORT DONE. INITIAL ASSESSMENT COMPLETED AND RECORDED PER FLOW SHEET. WILL MONITOR.
[2020-05-06] VITALS (21 sets, daily range): BP systolic 94–122; BP diastolic 60–85
[2020-05-06 05:04] LABS: BASOPHILS 2.2 % (0-2); EOSINOPHILS 8.5 % (0-7); HEMATOCRIT 30.9 % (42.0-54.0); HEMOGLOBIN 9.8 g/dL (13.5-17.5); IMMATURE GRANULOCYTES 1.1 % (0-5); LYMPHOCYTES 22.9 % (15-50); MCH 26.9 pg (26.0-34.0); MCHC 31.7 g/dL (31.0-37.0); MCV 84.9 fL (80.0-100.0); MONOCYTES 22.2 % (2-11); NEUTROPHILS 43.1 % (40-80); PLATELET COUNT 250 10x3/uL (130-400); RBC 3.64 10x6/uL (4.20-6.10); RDW 14.3 % (11.5-14.5); WBC 4.6 10x3/uL (4.8-10.8)
[2020-05-06 05:37] LABS: CALC OSMOLALITY 282 mosm/kg (275-300); CALCIUM 8.5 mg/dL (8.5-10.1); CARBON DIOXIDE 25.9 mmol/L (21.0-32.0); CHLORIDE - SERUM 105 mmol/L (98-107); CREATININE - SERUM 0.5 mg/dL (0.6-1.3); GLUCOSE 147 mg/dL (74-106); POTASSIUM - SERUM 3.1 mmol/L (3.5-5.1); SODIUM 142 mmol/L (136-145); UREA NITROGEN 4 mg/dL (7-18); eGFR NON AFRICAN AMERICAN > 90 mL/min (90-120)
--- NOTE | 2020-05-06 08:19 | NUR ---
POTASSIUM REPLACED PER ELECTROLYTE PROTOCOL.
[2020-05-06 13:27] LABS: VANCOMYCIN - TROUGH 22.5 ug/mL (10.0-20.0)
[2020-05-06 13:28] LABS: POTASSIUM - SERUM 4.2 mmol/L (3.5-5.1)
--- NOTE | 2020-05-06 14:26 | NUR ---
NOTED LOW STOOL OUTPUT TO RECTAL TUBE IN THE LAST 24 HOURS. RECTAL TUBE DCD AT THIS TIME. TOTAL LINEN CHANGE PROVIDED. CAROLIN CARE PROVIDED. VSS. TURNED Q2H. ORAL CARE PROVIDED Q2H. WILL CONTINUE PLAN OF CARE.
--- NOTE | 2020-05-06 14:55 | NUR ---
PT WOKE UP ON VENT AT THIS TIME, SHIFTING BODY TOWARDS THE SIDE OF THE BED WITH LEGS OVER SIDERAILS. PT REPOSITIOING PROVIDED. SEDATION TITRATED TO ORDER. ASKED PT TO SQUEEZE HANDS AND TO OPEN EYES, AND HE DID. VSS. WILL CONTINUE TO CLOSELY OBSERVE.
[2020-05-06 16:08] LABS: AEROBE ID Final report (())
--- NOTE | 2020-05-06 17:42 | NUR ---
PT NOTED INCREASED AGGITATION OF ATTEMPTING TO GET OUT OF BED BY TURNING SELF SIDEWAYS IN BED AND PLACING LEGS OVER SIDERAILS AND TRING TO SIT UP. VERSED GTT STARTED PER ORDERS. SEE IV FLOWSHEET.
[2020-05-07] VITALS (24 sets, daily range): BP systolic 99–130; BP diastolic 65–104
[2020-05-07 04:38] LABS: BASOPHILS 2.1 % (0-2); EOSINOPHILS 9.7 % (0-7); HEMATOCRIT 33.6 % (42.0-54.0); HEMOGLOBIN 10.6 g/dL (13.5-17.5); IMMATURE GRANULOCYTES 3.6 % (0-5); LYMPHOCYTES 33.3 % (15-50); MCHC 31.5 g/dL (31.0-37.0); MCV 85.5 fL (80.0-100.0); MEAN PLATELET VOLUME 9.1 fL (7.4-10.4); MONOCYTES 24.9 % (2-11); NEUTROPHILS 26.4 % (40-80); PLATELET COUNT 249 10x3/uL (130-400); RBC 3.93 10x6/uL (4.20-6.10); RDW 14.8 % (11.5-14.5); WBC 4.2 10x3/uL (4.8-10.8)
[2020-05-07 04:50] LABS: CALC OSMOLALITY 274 mosm/kg (275-300); CALCIUM 7.8 mg/dL (8.5-10.1); CARBON DIOXIDE 26.9 mmol/L (21.0-32.0); CHLORIDE - SERUM 102 mmol/L (98-107); CREATININE - SERUM 0.6 mg/dL (0.6-1.3); GLUCOSE 136 mg/dL (74-106); SODIUM 138 mmol/L (136-145); UREA NITROGEN 3 mg/dL (7-18); eGFR NON AFRICAN AMERICAN > 90 mL/min (90-120)
[2020-05-07 04:57] LABS: POTASSIUM - SERUM 3.3 mmol/L (3.5-5.1)
--- NOTE | 2020-05-07 07:00 | NUR ---
REC'D REPORT AND RESUMED CARE, ASSESSMENT COMPLETED PER FLOWSHEET, VSS, SEDATION IN USE, CHG BATH AND TURN COMPLETED
--- NOTE | 2020-05-07 08:20 | NUR ---
Nutrition follow-up: Pt intubated, sedated with propofol @ 39 ml/hr Glucerna 1.0 denisa infusing @ 50 ml/hr Labs reviewed Wt: 173# RDN following.
--- NOTE | 2020-05-07 09:30 | NUR ---
CHANGED TO CPAP BY CARMINE WITH RT, FENTANYL TIRATED TO 200 MCG, PROPOFAL TO 40 MCG, PERCOCET 5/325 INITIATED FOR WEANING OF VERSED, FENTANYL, AND PROPOFAL, PER ORDER
--- NOTE | 2020-05-07 11:00 | NUR ---
16FR GROSSMAN CATH EXCHANGED WITHOUT DIFFICULTY, VSS, CONTINUES ON SEDATION
--- NOTE | 2020-05-07 12:30 | NUR ---
CHANGED BACK TO RATE BY RT, HR 135, RESP 138, WILL CONTINUE WITH POC
--- NOTE | 2020-05-07 16:00 | NUR ---
I AND O'S COMPLETED WITHOUT DIFFICULTY
--- NOTE | 2020-05-07 17:00 | NUR ---
VENT ALARMING, LEGS OVER SIDE OF BED, REPOSITIONED FOR COMFORT, FENTANYL SOLVENT RECOVERER TITRATED TO 200 MCG
--- NOTE | 2020-05-07 21:56 | NUR ---
TEMP 100.8 @ 1900, APAP ADMINISTERED PER ORDERS. TEMP 100.9 @ 2100, GAVE OXY PT AGGITATED AND CONTINUES WITH FEBRILE STATE - AXY ADMINISTERED PER ORDERS. PT FLUIDS ICED. FAN RUNNING ON PT. WILL MONITOR CLOSELY.
[2020-05-08] VITALS (23 sets, daily range): BP systolic 93–135; BP diastolic 08–91; Ht 180.3 cm; Wt 78.6 kg
[2020-05-08 09:24] LABS: HEMATOCRIT 31.9 % (42.0-54.0); HEMOGLOBIN 10.8 g/dL (13.5-17.5); MCH 28.6 pg (26.0-34.0); MCHC 33.9 g/dL (31.0-37.0); MCV 84.6 fL (80.0-100.0); MEAN PLATELET VOLUME 9.5 fL (7.4-10.4); PLATELET COUNT 217 10x3/uL (130-400); RBC 3.77 10x6/uL (4.20-6.10); RDW 14.8 % (11.5-14.5); WBC 5.1 10x3/uL (4.8-10.8)
[2020-05-08 10:02] LABS: UREA NITROGEN 5 mg/dL (7-18)
[2020-05-08 10:03] LABS: ALKALINE PHOSPHATASE 58 U/L (30-120); ALT (SGPT) 24 U/L (10-68); BILIRUBIN - TOTAL 0.35 mg/dL (0.2-1.3); CALC OSMOLALITY 276 mosm/kg (275-300); CALCIUM 7.6 mg/dL (8.5-10.1); CARBON DIOXIDE 26.2 mmol/L (21.0-32.0); CHLORIDE - SERUM 96 mmol/L (98-107); CREATININE - SERUM 0.5 mg/dL (0.6-1.3); POTASSIUM - SERUM 3.2 mmol/L (3.5-5.1); PROTEIN - SERUM 6.1 g/dL (6.4-8.2); SODIUM 134 mmol/L (136-145); eGFR NON AFRICAN AMERICAN > 90 mL/min (90-120)
[2020-05-08 10:04] LABS: ALBUMIN 2.9 g/dL (3.4-5.0)
[2020-05-08 10:05] LABS: GLUCOSE 323 mg/dL (74-106)
[2020-05-08 12:41] LABS: ANISOCYTOSIS OCC; EOSINOPHILS 1 % (0-7); LYMPHOCYTES 18 % (15-50); MONOCYTES 15 % (2-11); NEUTROPHILS 52 % (40-80); PLATELET ESTIMATE NORMAL; ROULEAUX OCC; SMUDGE CELLS OCC
--- NOTE | 2020-05-08 14:20 | NUR ---
TO RADIOLOGY VIA BED WITH PORTABLE O2 AND VENT, RT AT BEDSIDE, FOR CT OF HEAD
--- NOTE | 2020-05-08 14:35 | NUR ---
BACK FROM CT, DIAPHORETIC, FSBS 128, CONNECTED TO MONITOR, VSS, WILL CONTINUE TO MONITOR
--- NOTE | 2020-05-08 16:00 | NUR ---
I AND O'S COMPLETED, FENTANYL TITRATED TO 100 MCG
--- NOTE | 2020-05-08 17:00 | NUR ---
TF SET CHANGED
[2020-05-08 18:08] LABS: AEROBE ID Final report (())
--- NOTE | 2020-05-08 19:08 | MORECARE ---
CASE MANAGEMENT DISCHARGE SUMMARY PATIENT: DANITZA PATRICIO UNIT: [id number] ADM DATE: 04/09/20 AGE: 45 : 75 SEX: M ROOM/BED: D.2307 AUTHOR: ROSSY,DOC PHYSICIAN: REFERRING PHYSICIAN: ULICES WALKER MD DATE OF SERVICE: 05/08/20 Discharge Plan Patient Name: DANITZA PATRICIO Facility: [facility]:[place] : 1975 Planned Disposition: Anticipated Discharge Date: Discharge Date: Expected LOS: Initial Reviewer: [email or web address] Initial Review Date: 04/09/2020 Generated: 05/08/20 8:07 pm DCP- Discharge Planning Updated by [email or web address]: Arianna Pearce on 05/08/20 6:[address] CM notified that [facility] had received auth. CM sent updates to Becky and she requested a COVID screen prior to admit. COVID screen ordered. Plan is for d/c to LTACH in am pending COVID results. DCP- Discharge Planning Updated by [email or web address]: Arianna Pearce on 05/03/20 7:[address] Late Entry 05/01/20 Patient getting PEG placed today. CM spoke with Patients mother and she agreed to LTACH in / [facility]. Patient's mother also requested a letter for court stating dates of admission. CM completed the letter and faxed to requested numbers. CM will continue to follow and assist. 05/02/20 CM called and spoke with Lui at [facility] in faxed records. CM is awaiting insurance auth for LTACH. CM will continue to follow and assist as needed with discharge planning / needs. DCP- Discharge Planning Updated by [email or web address]: Arianna Pearce on 04/23/20 4:[address] Patient Name: DANITZA PATRICIO Admission Status: ER Accout number: [id number] Admission Date: 04-09-2020 : 1975 Admission Diagnosis:ACUTE RESPIRATORY FAILURE WITH HYPOXIA Attending: CLAUDIA Current LOS: 14 Anticipated DC Date: Planned Disposition: Primary Insurance: WELLC[employer] MEDICARE ADV Discharge Planning Comments: CM met with patient's mother Rebecca to complete initial dc planning assessment. CM educated patient's mother on the CM role and verbal consent given by patient to complete assessment. Patient lived with a friend prior to admit. Patient is independent. At discharge patient plans to return to mother's home and feels this is a safe discharge. CM discussed availability of home health, rehab services, and medical equipment. Patient will have family to transport home. Patient denied known discharge needs at this time. CM will continue to follow and will assist as needed with dc plans/needs. Multiplex Operator: Arianna Pearce DCPIA - Discharge Planning Initial Assessment Updated by [email or web address]: Arianna Pearce on 04/23/20 5:21 pm * Is the patient Alert and Oriented? Yes * How many steps to enter\exit or inside your home? * PCP RAFAEL MONTOYA * Pharmacy [facility] * ADLs Independent * Equipment None * List name and contact numbers for known caregivers / representatives who currently or will assist patient after discharge: REBECCA PATRICIO MOTHER-A - [phone] [facility] - [phone] * Community resources currently utilized None * Additional services required to return to the preadmission environment? No * Can the patient safely return to the preadmission environment? Yes * Has this patient been hospitalized within the prior 30 days at any hospital? No Last DP export: 05/04/20 3:09 pm Patient Name: DANITZA PATRICIO Page 28761 at 1908 All edits/amendments must be made on the electronic document DICTATION DATE: 05/08/201906 PHARMACEUTICAL PROCESS ENGINEER: NIGEL 05/08/201906 RPT#: [id number] DC DATE: STATUS: [facility] [address] [place] [address] END OF REPORT
--- NOTE | 2020-05-08 19:16 | MORECARE ---
CASE MANAGEMENT DISCHARGE SUMMARY PATIENT: DANITZA PATRICIO UNIT: [id number] ADM DATE: 04/09/20 AGE: 45 : 75 SEX: M ROOM/BED: D.2307 AUTHOR: ROSSY,DOC PHYSICIAN: REFERRING PHYSICIAN: ULICES WALKER MD DATE OF SERVICE: 05/08/20 Discharge Plan Patient Name: DANITZA PATRICIO Facility: [facility]:[place] : 1975 Planned Disposition: Anticipated Discharge Date: Discharge Date: Expected LOS: Initial Reviewer: [id number] Initial Review Date: 04/09/2020 Generated: 05/08/20 8:15 pm DCP- Discharge Planning Updated by [email or web address]: Arianna Pearce on 05/08/20 6:[address] [facility] CM sent updates to Becky and she requested a COVID screen prior to admit. COVID screen ordered. Plan is for d/c to LTACH in am pending COVID results. Attempted to contact patient's mother to update on discharge plan. CM will continue to follow and assist as needed with discharge planning / needs. DCP- Discharge Planning Updated by [id number]: Arianna Pearce on 05/03/20 7:[address] Late Entry 05/01/20 Patient getting PEG placed today. CM spoke with Patients mother and she agreed to LTACH in / [place] area. Patient's mother also requested a letter for court stating dates of admission. CM completed the letter and faxed to requested numbers. CM will continue to follow and assist. 05/02/20 CM called and spoke with Lui at [facility] in faxed records. CM is awaiting insurance auth for LTACH. CM will continue to follow and assist as needed with discharge planning / needs. DCP- Discharge Planning Updated by [email or web address]: Arianna Pearce on 04/23/20 4:[address] Patient Name: DANITZA PATRICIO Admission Status: ER Accout number: [id number] Admission Date: 04-09-2020 : 1975 Admission Diagnosis:ACUTE RESPIRATORY FAILURE WITH HYPOXIA Attending: CLAUDIA Current LOS: 14 Anticipated DC Date: Planned Disposition: Primary Insurance: [employer] MEDICARE ADV Discharge Planning Comments: CM met with patient's mother Rebecca to complete initial dc planning assessment. CM educated patient's mother on the CM role and verbal consent given by patient to complete assessment. Patient lived with a friend prior to admit. Patient is independent. At discharge patient plans to return to mother's home and feels this is a safe discharge. CM discussed availability of home health, rehab services, and medical equipment. Patient will have family to transport home. Patient denied known discharge needs at this time. CM will continue to follow and will assist as needed with dc plans/needs. Shoeshiner: Arianna Pearce DCPIA - Discharge Planning Initial Assessment Updated by [email or web address]: Arianna Pearce on 04/23/20 5:21 pm * Is the patient Alert and Oriented? Yes * How many steps to enter\exit or inside your home? * PCP RAFAEL MONTOYA * Pharmacy [facility] * ADLs Independent * Equipment None * List name and contact numbers for known caregivers / representatives who currently or will assist patient after discharge: REBECCA PATRICIO - MOTHER-POA - [phone] TALISHA Knight - [phone] * Community resources currently utilized None * Additional services required to return to the preadmission environment? No * Can the patient safely return to the preadmission environment? Yes * Has this patient been hospitalized within the prior 30 days at any hospital? No Last DP export: 05/08/20 6:08 pm Patient Name: DANITZA PATRICIO Page [id number] at 1916 All edits/amendments must be made on the electronic document DICTATION DATE: 05/08/201914 SUPERINTENDENT STORAGE AREA: NIGEL 05/08/201914 RPT#: [id number] DC DATE: STATUS: ADM IN [facility] [address] [place] [address] END OF REPORT
[2020-05-09] VITALS (12 sets, daily range): BP systolic 99–144; BP diastolic 68–90
--- NOTE | 2020-05-09 07:00 | NUR ---
REC' REPORT AND RESUMED CARE, VSS, SLEEPING VENT TO TRACH, AND SECURED, ASSESSMENT COMPLETED PER FLOWSHEET, CURRENTLY ON VERSED FENTANYL AND PROPOFAL
--- NOTE | 2020-05-09 09:00 | NUR ---
MORNING MEDS GIVEN PER OCT FLOWSHEET
--- NOTE | 2020-05-09 09:53 | NUR ---
Nutrition follow-up: Pt with vent to trach; propofol @ 36 ml/hr PEG tube with Glucerna @ 50 ml/hr Labs reviewed Wt: 173# Possible discharge to LTACH today RDN following.
--- NOTE | 2020-05-09 11:00 | NUR ---
NO ACUTE CHANGE FROM PREVIOUS ASSESSMENT
--- NOTE | 2020-05-09 15:00 | NUR ---
[facility]
--- NOTE | 2020-05-09 16:30 | NUR ---
VERSED GTT D'CD, ORAL CARE AND SUCTION COMPLETED
--- NOTE | 2020-05-09 17:45 | NUR ---
D/C VIA STRETCHER AND EMS PERSONNEL X3, PORTABLE VENT IN USE, FENTANYL AT 200 MCG AND 50 MCG OF PROPOFAL,
--- NOTE | 2020-05-09 20:03 | MORECARE ---
CASE MANAGEMENT DISCHARGE SUMMARY PATIENT: DANITZA PATRICIO UNIT: [id number] ADM DATE: 04/09/20 AGE: 45 : 75 SEX: M ROOM/BED: D.2307 AUTHOR: ROSSY,DOC PHYSICIAN: REFERRING PHYSICIAN: ULICES WALKER MD DATE OF SERVICE: 05/09/20 Discharge Plan Patient Name: DANITZA PATRICIO Facility: [facility]:[place] : 1975 Planned Disposition: Anticipated Discharge Date: Discharge Date: 05/09/2020 Expected LOS: Initial Reviewer: [email or web address] Initial Review Date: 04/09/2020 Generated: 05/09/20 9:02 pm Comments DCP- Discharge Planning Updated by [email or web address]: Arianna Pearce on 05/09/20 6:[address] COVID test completed and updates faxed to Becky at [facility]. [facility] was trying to contact patients mother was finally able to contact patient's and consent to transfer was given. Patient will transfer to room 6014 and nursing to call report to [phone] and patient to transport after 3pm. d/c imm completed. DCP- Discharge Planning Updated by [email or web address]: Arianna Pearce on 05/08/20 6:[address] CM notified that [facility] had received auth. KEYANNA sent updates to [facility] and she requested a COVID screen prior to admit. COVID screen ordered. Plan is for d/c to LTACH in am pending COVID results. Attempted to contact patient's mother to update on discharge plan. CM will continue to follow and assist as needed with discharge planning / needs. DCP- Discharge Planning Updated by [id number]: Arianna Pearce on 05/03/20 7:[address] Late Entry 05/01/20 Patient getting PEG placed today. KEYANNA spoke with Patients mother and she agreed to LTACH in / [facility]. Patient's mother also requested a letter for court stating dates of admission. CM completed the letter and faxed to requested numbers. CM will continue to follow and assist. 05/02/20 KEYANNA called and spoke with Lui at [facility] in faxed records. CM is awaiting insurance auth for LTACH. CM will continue to follow and assist as needed with discharge planning / needs. DCP- Discharge Planning Updated by [email or web address]: Arianna Pearce on 04/23/20 4:[address] Patient Name: DANITZA PATRICIO Admission Status: ER Accout number: [id number] Admission Date: 04-09-2020 : 1975 Admission Diagnosis:ACUTE RESPIRATORY FAILURE WITH HYPOXIA Attending: CLAUDIA Current LOS: 14 Anticipated DC Date: Planned Disposition: Primary Insurance: [employer] MEDICARE ADV Discharge Planning Comments: CM met with patient's mother Rebecca to complete initial dc planning assessment. CM educated patient's mother on the CM role and verbal consent given by patient to complete assessment. Patient lived with a friend prior to admit. Patient is independent. At discharge patient plans to return to mother's home and feels this is a safe discharge. CM discussed availability of home health, rehab services, and medical equipment. Patient will have family to transport home. Patient denied known discharge needs at this time. CM will continue to follow and will assist as needed with dc plans/needs. Personal Banking Officer: Arianna Pearce DCPIA - Discharge Planning Initial Assessment Updated by [email or web address]: Arianna Pearce on 04/23/20 5:21 pm * Is the patient Alert and Oriented? Yes * How many steps to enter\exit or inside your home? * PCP RAFAEL MONTOYA * Pharmacy [facility] * ADLs Independent * Equipment None * List name and contact numbers for known caregivers / representatives who currently or will assist patient after discharge: REBECCA WESTFORD - MOTHER-POA - [phone] TALISHA WESTFORD - - [phone] * Community resources currently utilized None * Additional services required to return to the preadmission environment? No * Can the patient safely return to the preadmission environment? Yes * Has this patient been hospitalized within the prior 30 days at any hospital? No Coverage Notice Reviewer: [email or web address] Antonia Pearce Notice Issued Date-Time: 05/02/2020 19:41 Notice Type: Patient Choice Letter Notice Delivered To: Family Member Relationship to Patient: Mother Public Health Sanitarian Name: Rebecca Delivery Method: HAND - Hand Delivered Joselyn Days: Prior Verbal Notification: Recipient Understood Notice: Yes Recipient Signature: Yes Med Rec Note Co-signed by Attending: Coverage Notice Comment: [place]ACH [place] - [facility] Reviewer: [email or web address] Antonia Pearce Notice Issued Date-Time: 05/09/2020 11:50 Notice Type: IM Discharge Notice Notice Delivered To: Family Member Relationship to Patient: Spouse Public Health Sanitarian Name: Delivery Method: HAND - Hand Delivered Joselyn Days: Prior Verbal Notification: Recipient Understood Notice: Yes Recipient Signature: Yes Med Rec Note Co-signed by Attending: Coverage Notice Comment: Last DP export: 05/08/20 6:16 pm Patient Name: DANITZA PATRICIO Page [id number] at 2003 All edits/amendments must be made on the electronic document DICTATION DATE: 05/09/202001 GROUND INSTRUCTOR BASIC: NIGEL 05/09/202001 RPT#: [id number] DC DATE:05/09/20 STATUS: DIS IN [facility] [address] [place] [address] END OF REPORT
--- NOTE | 2020-05-10 09:25 | MORECARE ---
CASE MANAGEMENT DISCHARGE SUMMARY PATIENT: DANITZA PATRICIO UNIT: [id number] ADM DATE: 04/09/20 AGE: 45 : 75 SEX: M ROOM/BED: D.2307 AUTHOR: ROSSY,DOC PHYSICIAN: REFERRING PHYSICIAN: ULICES WALKER MD DATE OF SERVICE: 05/10/20 Discharge Plan Patient Name: DANITZA PATRICIO Facility: [facility]:[place] : 1975 Planned Disposition: Anticipated Discharge Date: Discharge Date: 05/09/2020 Expected LOS: Initial Reviewer: [email or web address] Initial Review Date: 04/09/2020 Generated: 05/10/20 10:24 am Comments DCP- Discharge Planning Updated by [email or web address]: Arianna Pearce on 05/09/20 6:[address] COVID test completed and updates faxed to Becky at [facility]. [place] was trying to contact patients mother was finally able to contact patient's and consent to transfer was given. Patient will transfer to room 6014 and nursing to call report to [phone] and patient to transport after 3pm. d/c imm completed. DCP- Discharge Planning Updated by [email or web address]: Arianna Pearce on 05/08/20 6:[address] CM notified that [facility] had received auth. KEYANNA sent updates to [place] and she requested a COVID screen prior to admit. COVID screen ordered. Plan is for d/c to LTACH in am pending COVID results. Attempted to contact patient's mother to update on discharge plan. CM will continue to follow and assist as needed with discharge planning / needs. DCP- Discharge Planning Updated by [id number]: Arianna Pearce on 05/03/20 7:[address] Late Entry 05/01/20 Patient getting PEG placed today. KEYANNA spoke with Patients mother and she agreed to LTACH in / [facility]. Patient's mother also requested a letter for court stating dates of admission. CM completed the letter and faxed to requested numbers. CM will continue to follow and assist. 05/02/20 KEYANNA called and spoke with Lui at [facility] in faxed records. CM is awaiting insurance auth for LTACH. CM will continue to follow and assist as needed with discharge planning / needs. DCP- Discharge Planning Updated by [email or web address]: Arianna Pearce on 04/23/20 4:[address] Patient Name: DANITZA PATRICIO Admission Status: ER Accout number: [id number] Admission Date: 04-09-2020 : 1975 Admission Diagnosis:ACUTE RESPIRATORY FAILURE WITH HYPOXIA Attending: CLAUDIA Current LOS: 14 Anticipated DC Date: Planned Disposition: Primary Insurance: [employer] MEDICARE ADV Discharge Planning Comments: CM met with patient's mother Rebecca to complete initial dc planning assessment. CM educated patient's mother on the CM role and verbal consent given by patient to complete assessment. Patient lived with a friend prior to admit. Patient is independent. At discharge patient plans to return to mother's home and feels this is a safe discharge. CM discussed availability of home health, rehab services, and medical equipment. Patient will have family to transport home. Patient denied known discharge needs at this time. CM will continue to follow and will assist as needed with dc plans/needs. Oil Developer: Arianna Pearce DCPIA - Discharge Planning Initial Assessment Updated by [email or web address]: Arianna Pearce on 04/23/20 5:21 pm * Is the patient Alert and Oriented? Yes * How many steps to enter\exit or inside your home? * PCP RAFAEL MONTOYA * Pharmacy [facility] * ADLs Independent * Equipment None * List name and contact numbers for known caregivers / representatives who currently or will assist patient after discharge: REBECCA QUIMBY - MOTHER-POA - [phone] TALISHA QUIMBY - - [phone] * Community resources currently utilized None * Additional services required to return to the preadmission environment? No * Can the patient safely return to the preadmission environment? Yes * Has this patient been hospitalized within the prior 30 days at any hospital? No Coverage Notice Reviewer: [id number] Antonia Pearce Notice Issued Date-Time: 05/02/2020 19:41 Notice Type: Patient Choice Letter Notice Delivered To: Family Member Relationship to Patient: Mother Silk Brusher Name: Rebecca Delivery Method: HAND - Hand Delivered Joselyn Days: Prior Verbal Notification: Recipient Understood Notice: Yes Recipient Signature: Yes Med Rec Note Co-signed by Attending: Coverage Notice Comment: LTACH [place] - [facility] Reviewer: [email or web address] Antonia Pearce Notice Issued Date-Time: 05/09/2020 11:50 Notice Type: IM Discharge Notice Notice Delivered To: Family Member Relationship to Patient: Spouse Silk Brusher Name: Delivery Method: HAND - Hand Delivered Joselyn Days: Prior Verbal Notification: Recipient Understood Notice: Yes Recipient Signature: Yes Med Rec Note Co-signed by Attending: Coverage Notice Comment: Last DP export: 05/09/20 7:03 pm Patient Name: DANITZA PATRICIO Page [phone] at 0925 All edits/amendments must be made on the electronic document DICTATION DATE: 05/10/20924 AIRBORNE SENSOR SPECIALIST: NIGEL 05/10/20924 RPT#: [id number] DC DATE:05/09/20 STATUS: DIS IN [facility] [address] [place] [address] END OF REPORT
== END 2020-05-09 17:45 | DRG 4 ==
LOC: D.ER 03:31 → D.EDHOLD 17:02 → D.ICU 17:02
PROVIDERS: Emergency Medicine; Family Medicine; Internal Medicine Gastroenterology; Internal Medicine Pulmonary Disease; ADMIT Family Medicine; ATTEND Family Medicine
PROC: 5A1955Z Respiratory Ventilation, Greater than 96 Consecutive Hours (ICD-10-PCS; 2020-04-09)
PROC: 05HY33Z Insertion of Infusion Device into Upper Vein, Percutaneous Approach (ICD-10-PCS; 2020-04-10)
PROC: 0DB78ZX Excision of Stomach, Pylorus, Via Natural or Artificial Opening Endoscopic, Diagnostic (ICD-10-PCS; principal; 2020-04-10 15:26)
PROC: 0B978ZZ Drainage of Left Main Bronchus, Via Natural or Artificial Opening Endoscopic (ICD-10-PCS; 2020-04-19)
PROC: 0B938ZZ Drainage of Right Main Bronchus, Via Natural or Artificial Opening Endoscopic (ICD-10-PCS; 2020-04-19)
PROC: 0B113F4 Bypass Trachea to Cutaneous with Tracheostomy Device, Percutaneous Approach (ICD-10-PCS; 2020-04-27)
PROC: 0DH63UZ Insertion of Feeding Device into Stomach, Percutaneous Approach (ICD-10-PCS; 2020-05-01)
PROC: 0B9B8ZZ Drainage of Left Lower Lobe Bronchus, Via Natural or Artificial Opening Endoscopic (ICD-10-PCS; 2020-05-01)
PROC: 0B968ZZ Drainage of Right Lower Lobe Bronchus, Via Natural or Artificial Opening Endoscopic (ICD-10-PCS; 2020-05-01)
PROC: 05HY33Z Insertion of Infusion Device into Upper Vein, Percutaneous Approach (ICD-10-PCS; 2020-05-04)
DX: T43.621A Poisoning by amphetamines, accidental (unintentional), initial encounter (principal); J96.01 Acute respiratory failure with hypoxia; G92 Toxic encephalopathy; K25.4 Chronic or unspecified gastric ulcer with hemorrhage; J15.6 Pneumonia due to other Gram-negative bacteria; J15.212 Pneumonia due to Methicillin resistant Staphylococcus aureus; N17.9 Acute kidney failure, unspecified; E87.0 Hyperosmolality and hypernatremia; D62 Acute posthemorrhagic anemia; E87.1 Hypo-osmolality and hyponatremia; E11.65 Type 2 diabetes mellitus with hyperglycemia; D50.9 Iron deficiency anemia, unspecified; E83.51 Hypocalcemia; I10 Essential (primary) hypertension; F32.9 Major depressive disorder, single episode, unspecified; F15.10 Other stimulant abuse, uncomplicated; K21.0 Gastro-esophageal reflux disease with esophagitis; D72.829 Elevated white blood cell count, unspecified; E87.6 Hypokalemia; K25.9 Gastric ulcer, unspecified as acute or chronic, without hemorrhage or perforation; R53.81 Other malaise